=== PATIENT | female | born 1940 | race Caucasian/White ===

== ENCOUNTER → 2016-08-13 | Outpatient (CLI) | payer MEDICARE, BC ==
[2016-08-13 12:48] LABS: ABSOLUTE EOSINOPHILS # (AUTO) 0.3 10^3/uL (0.0-0.6); ABSOLUTE LYMPHOCYTES (AUTO) 1.8 10^3/uL (0.5-4.7); ABSOLUTE MONOCYTES (AUTO) 0.4 10^3/uL (0.1-1.4); ABSOLUTE NEUT (AUTO) 3.5 10^3/uL (1.7-8.2); BASOPHILS % (AUTO) 0.7 % (0-2); EOSINOPHILS % (AUTO) 4.5 % (0-6); HEMATOCRIT 35.6 % (36.0-47.0); HEMOGLOBIN 11.5 g/dL (12.0-15.5); HGB HCT DIFFERENCE -1.1; MEAN CORPUSCULAR HGB CONC 32.2 g/dL (32.0-36.0); MEAN CORPUSCULAR VOLUME 81 fl (80-97); RED CELL DISTRIBUTION WIDTH 14.8 % (11.5-14.0); SEGMENTED NEUTROPHILS % (AUTO) 57.8 % (42-78); WHITE BLOOD COUNT 6.1 10^3/uL (4.0-10.5)
[2016-08-13 13:10] LABS: ALANINE AMINOTRANSFERASE 28 U/L (9-52); ALKALINE PHOSPHATASE 45 U/L (38-126); ANION GAP 9 (5-19); ASPARTATE AMINO TRANSFERASE 16 U/L (14-36); BILIRUBIN,DIRECT 0.3 mg/dL (0.0-0.4); BILIRUBIN,TOTAL 0.7 mg/dL (0.2-1.3); BLOOD UREA NITROGEN 22 mg/dL (7-20); CALCIUM 9.1 mg/dL (8.4-10.2); CARBON DIOXIDE 30 mmol/L (22-30); CHLORIDE 99 mmol/L (98-107); CHOLESTEROL 180.12 mg/dL (0-200); CREATININE RESULT 0.84 mg/dL (0.52-1.25); Direct HDL 48 mg/dL (>40); GLUCOSE 162 mg/dL (75-110); POTASSIUM 4.1 mmol/L (3.6-5.0); TOTAL PROTEIN 6.3 g/dL (6.3-8.2); TRIGLYCERIDES 102 mg/dL (<150)
[2016-08-13 13:22] LABS: DIRECT LDL 110 mg/dL (<100)
[2016-08-14 10:38] LABS: CREATININE URINE 111.8 mg/dL (Not Estab.); MICROALBUMIN URINE 12.6 ug/mL (Not Estab.)
== END ==
LOC: OD 11:28
PROVIDERS: ATTEND Family Medicine
DX: E78.5 Hyperlipidemia, unspecified (principal); Z79.899 Other long term (current) drug therapy; D51.9 Vitamin B12 deficiency anemia, unspecified; E11.65 Type 2 diabetes mellitus with hyperglycemia
CPT/HCPCS: 36415; 80053; 80061; 82043; 82570; 82607; 83036; 84443; 85025

== ENCOUNTER 2016-11-20 11:49 | Inpatient (IN) | payer MEDICARE, BC ==
[2016-11-20] MEDS ORDERED: DILTIAZEM HCL INJ 25 MG/5 ML VIAL IV ONE (12:15)
[2016-11-20] MEDS ORDERED: DILTIAZEM HCL/D5W 125 MG/125 ML RTUINJ IV PRN (12:15)
[2016-11-20 12:39] LABS: ABSOLUTE BASOPHILS # (AUTO) 0.1 10^3/uL (0.0-0.2); ABSOLUTE EOSINOPHILS # (AUTO) 0.2 10^3/uL (0.0-0.6); ABSOLUTE LYMPHOCYTES (AUTO) 2.2 10^3/uL (0.5-4.7); ABSOLUTE NEUT (AUTO) 8.4 10^3/uL (1.7-8.2); BASOPHILS % (AUTO) 0.5 % (0-2); EOSINOPHILS % (AUTO) 1.8 % (0-6); HEMATOCRIT 35.2 % (36.0-47.0); HEMOGLOBIN 11.9 g/dL (12.0-15.5); HGB HCT DIFFERENCE 0.5; LYMPHOCYTES % (AUTO) 18.4 % (13-45); MEAN CORPUSCULAR HEMOGLOBIN 27.6 pg (27.0-33.4); MEAN CORPUSCULAR HGB CONC 33.8 g/dL (32.0-36.0); MEAN CORPUSCULAR VOLUME 82 fl (80-97); MONOCYTES % (AUTO) 8.2 % (3-13); RED BLOOD COUNT 4.32 10^6/uL (3.72-5.28); RED CELL DISTRIBUTION WIDTH 15.3 % (11.5-14.0); SEGMENTED NEUTROPHILS % (AUTO) 71.1 % (42-78); WHITE BLOOD COUNT 11.8 10^3/uL (4.0-10.5)
--- NOTE | 2016-11-20 12:56 | ER Document Report ---
ED General - General Chief Complaint: Palpitations Stated Complaint: ABNORMAL LABS Time Seen by Provider: 11/20/16 12:11 Mode of Arrival: Medic Information source: Patient Notes: 75 yr old female presents with hx of afib with complaints of [place]kan[place] sob over the past few days. Pt notes heart is racing TRAVEL OUTSIDE OF THE [place] IN LAST 30 DAYS: No - HPI Onset: Other - 2-3 days Onset/Duration: Sudden Quality of pain: No pain Severity: Moderate Pain Level: Denies Associated symptoms: Shortness of breath, Weakness Exacerbated by: Walking Relieved by: Denies Similar symptoms previously: Yes Recently seen / treated by doctor: Yes - Related Data Allergies/Adverse Reactions: aspirin [Aspirin] Allergy (Intermediate, Verified 11/20/16 12:00) Hives ciprofloxacin [Ciprofloxacin] Allergy (Intermediate, Verified 11/20/16 12:00) itching Past Medical History - Social History Smoking Status: Never Smoker Cigarette use (# per day): No Chew tobacco use (# tins/day): No Smoking Education Provided: No Family History: None Patient has suicidal ideation: No Patient has homicidal ideation: No - Past Medical History Cardiac Medical History: Denies: Hx Heart Attack, Hx Hypertension Pulmonary Medical History: Denies: Hx Asthma Neurological Medical History: Denies: Hx Cerebrovascular Accident, Hx Seizures Endocrine Medical History: Reports: Hx Diabetes Mellitus Type 2 Renal/ Medical History: Denies: Hx Peritoneal Dialysis GI Medical History: Denies: Hx Hepatitis, Hx Hiatal Hernia, Hx Ulcer Infectious Medical History: Denies: Hx Hepatitis Past Surgical History: Reports: Hx Orthopedic Surgery, Hx Tonsillectomy. Denies : Hx Hysterectomy, Hx Mastectomy, Hx Open Heart Surgery, Hx Pacemaker Review of Systems - Review of Systems Notes: REVIEW OF SYSTEMS: CONSTITUTIONAL : Denies fever, chills, or sweats. Denies recent illness. EENT: Denies eye, ear, throat, or mouth pain or symptoms. Denies nasal or sinus congestion or discharge. Denies throat, tongue, or mouth swelling or difficulty swallowing. CARDIOVASCULAR: heart racing RESPIRATORY: Denies cough, cold, or chest congestion. Denies shortness of breath, difficulty breathing, or wheezing. GASTROINTESTINAL: Denies abdominal pain or distention. Denies nausea, vomiting , or diarrhea. Denies blood in vomitus, stools, or per rectum. Denies black, tarry stools. Denies constipation. GENITOURINARY: Denies difficulty urinating, painful urination, burning, frequency, blood in urine, or discharge. FEMALE GENITOURINARY: Denies vaginal bleeding, heavy or abnormal periods, irregular periods. Denies vaginal discharge or odor. MUSCULOSKELETAL: Denies back or neck pain or stiffness. Denies joint pain or swelling. SKIN: Denies rash, lesions or sores. HEMATOLOGIC : Denies easy bruising or bleeding. LYMPHATIC: Denies swollen, enlarged glands. NEUROLOGICAL: Denies confusion or altered mental status. Denies passing out or loss of consciousness. Denies dizziness or lightheadedness. Denies headache. Denies weakness or paralysis or loss of use of either side. Denies problems with gait or speech. Denies sensory loss, numbness, or tingling. Denies seizures. PSYCHIATRIC: Denies anxiety or stress. Denies depression, suicidal ideation, or homicidal ideation. ALL OTHER SYSTEMS REVIEWED AND NEGATIVE. PHYSICAL EXAMINATION: GENERAL: Well-appearing, well-nourished and in no acute distress. HEAD: Atraumatic, normocephalic. EYES: Pupils equal round and reactive to light, extraocular movements intact, conjunctiva are normal. ENT: Nares patent, oropharynx clear without exudates. Moist mucous membranes. NECK: Normal range of motion, supple without lymphadenopathy LUNGS: Breath sounds clear to auscultation bilaterally and equal. No wheezes rales or rhonchi. HEART: irregular rate and rhythm ABDOMEN: Soft, nontender, nondistended abdomen. No guarding, no rebound. No masses appreciated. Female : deferred Musculoskeletal: Normal range of motion, no pitting or edema. No cyanosis. NEUROLOGICAL: Cranial nerves grossly intact. Normal speech, normal gait. Normal sensory, motor exams PSYCH: Normal mood, normal affect. SKIN: Warm, Dry, normal turgor, no rashes or lesions noted. Dictation was performed using [employer] voice recognition software Physical Exam - Vital signs Vitals: Temp Pulse Resp BP Pulse Ox 98.6 F 146 H 16 109/80 92 11/20/16 11:57 11/20/16 11:57 11/20/16 11:57 11/20/16 11:57 11/20/16 11:57 Course - Re-evaluation Re-evalutation: 11/20/16 12:59 afib rvr noted, pt immediately given cardizem, drip started 11/20/16 13:39 Patient's heart rate has come down to the 130s-140s, I do wish to give metoprolol as well but her blood pressure is not high enough at this time. I will admit to the [facility] inpatient - Vital Signs Vital signs: Temp Pulse Resp BP Pulse Ox 98.6 F 146 H 16 87/66 L 97 11/20/16 11:57 11/20/16 11:57 11/20/16 13:16 11/20/16 13:16 11/20/16 13:16 - Laboratory Result Diagrams: 11/20/16 12:10 11/20/16 12:10 Laboratory results interpreted by me: 11/20/16 11/20/16 11/20/16 12:10 12:10 12:10 WBC 11.8 H Hgb 11.9 L Hct 35.2 L RDW 15.3 H Absolute Neutrophils 8.4 H BUN 21 H Est GFR (Non-Af Amer) 52 L Glucose 229 H Direct Bilirubin 0.5 H NT-Pro-B Natriuret Pep 1530 H - Diagnostic Test Radiology reviewed: Image reviewed, Reports reviewed - EKG Interpretation by Me EKG shows normal: Sinus rhythm, [place], Intervals, QRS Complexes Rate: Tachycardia Rhythm: A.Fib Critical Care Note - Critical Care Note Total time excluding time spent on procedures (mins): 38 Comments: 38 minutes of critical care time spent in direct contact evaluating and reevaluating the patient, treating symptoms, reviewing labs and studies and speaking with family and consultants excluding any procedures Discharge - Discharge Clinical Impression: Atrial fibrillation with RVR Condition: Stable Disposition: ADMITTED INPATIENT Admitting Provider: Hospitalist Unit Admitted: [facility]
[2016-11-20 12:57] LABS: ALANINE AMINOTRANSFERASE 26 U/L (9-52); ALBUMIN 4.6 g/dL (3.5-5.0); ALKALINE PHOSPHATASE 52 U/L (38-126); ANION GAP 16 (5-19); ASPARTATE AMINO TRANSFERASE 19 U/L (14-36); BILIRUBIN,DIRECT 0.5 mg/dL (0.0-0.4); BILIRUBIN,TOTAL 1.3 mg/dL (0.2-1.3); BLOOD UREA NITROGEN 21 mg/dL (7-20); CALCIUM 9.8 mg/dL (8.4-10.2); CARBON DIOXIDE 25 mmol/L (22-30); CHLORIDE 99 mmol/L (98-107); CREATINE KINASE 40 U/L (30-135); CREATININE RESULT 1.03 mg/dL (0.52-1.25); GLUCOSE 229 mg/dL (75-110); MAGNESIUM 1.7 mg/dL (1.6-2.3); SODIUM 139.5 mmol/L (137-145); TOTAL PROTEIN 7.1 g/dL (6.3-8.2)
[2016-11-20] MEDS ORDERED: METOPROLOL TARTRATE PF/INJ 5 MG/5 ML SDV IV ONE ×2 (13:07→19:09)
[2016-11-20] MEDS ORDERED: NORMAL SALINE 1000 ML 1,000 ML IV ONE (13:07)
[2016-11-20 13:08] LABS: CREATINE KINASE MB 0.59 ng/mL (<4.55)
[2016-11-20 13:10] LABS: TROPONIN I < 0.012 ng/mL
--- NOTE | 2016-11-20 13:10 | RADIOLOGY REPORT (SQ) ---
EXAM DESCRIPTION: CHEST PA/LAT COMPLETED DATE/TIME: 11/20/2016 12:48 pm REASON FOR STUDY: afib rvr COMPARISON: CT angio chest 02/18/2014 Chest films 03/02/2014, 07/06/2014, 10/26/2014 EXAM PARAMETERS: NUMBER OF VIEWS: two views TECHNIQUE: Digital Frontal and Lateral radiographic views of the chest acquired. RADIATION DOSE: NA LIMITATIONS: none FINDINGS: LUNGS AND PLEURA: There is trace fluid in the posterior costophrenic sulci bilaterally. Minimal bibasilar atelectasis. No fluffy alveolar infiltrates worrisome for edema or pneumonia. MEDIASTINUM AND HILAR STRUCTURES: No masses or contour abnormalities. HEART AND VASCULAR STRUCTURES: Borderline cardiomegaly BONES: No acute findings. HARDWARE: None in the chest. OTHER: No other significant finding. IMPRESSION: Trace bilateral pleural effusions with very mild bibasilar atelectasis TECHNICAL DOCUMENTATION: JOB ID: [id number] [employer]- All Rights Reserved
[2016-11-20] MEDS ORDERED: DIGOXIN INJ 0.5 MG/2 ML AMPULE IV ONE (14:17)
[2016-11-20] MEDS ORDERED: ONDANSETRON HCL INJ/PF 4 MG/2 ML SDV IV PRN (14:56)
[2016-11-20] MEDS ORDERED: NORMAL SALINE 1000 ML 1,000 ML IV PRN (14:56)
[2016-11-20] MEDS ORDERED: ACETAMINOPHEN 325 MG TABLET PO PRN (14:56)
[2016-11-20] MEDS ORDERED: ONDANSETRON 4 MG TAB.RAPDIS PO PRN (14:56)
[2016-11-20] MEDS ORDERED: GLUCAGON,HUMAN RECOMB 1 MG INJ IM PRN (15:03)
[2016-11-20] MEDS ORDERED: DEXTROSE 50%-WATER 25 GM/50 ML DISP.SYRIN IV PRN ×2 (15:03)
[2016-11-20] MEDS ORDERED: DEXTROSE 40% GEL 15 GM TUBE PO PRN ×2 (15:03)
--- NOTE | 2016-11-20 15:12 | PDOC H&P ---
History of Present Illness Admission Date/PCP: CHAD ALCALA MD Patient complains of: Shortness of breath History of Present Illness: BREANA BISWAS is a 75 year old female who has a history of atrial fibrillation in the past but has not had symptoms for quite some time who presents with a four-day history of intermittent shortness of breath. Patient reports that on Wednesday she was cutting her grass by using a riding lawnmower and became very dyspneic. This lasted about 40 minutes and resolved spontaneously. Patient then did well until Wednesday when she woke up Wednesday morning she had an episode of shortness of breath lasted approximately 15 or 20 minutes. She had shortness of breath today and presented to the emergency room. She was found to have atrial fibrillation with a rapid ventricular rate. She denies having any chest pain associated with this. She denies any orthopnea or PND. Denies any lower extremity edema. Patient denies any fevers or chills. She does have a history of diastolic congestive heart failure but denies any orthopnea or PND. She does report she has gained about 3 pounds in the last week. The patient has not been checking her blood sugars. She also has chronic lymphocytic leukemia but has not received treatment for that recently. Past Medical History Cardiac Medical History: Reports: Congestive Heart Failure - Diastolic dysfunction Denies: Myocardial Infarction, Hypertension Pulmonary Medical History: Reports: Chronic Obstructive Pulmonary Disease (COPD) Denies: Asthma Neurological Medical History: Denies: Seizures Endocrine Medical History: Reports: Diabetes Mellitus Type 2 Malignancy Medical History: Reports: Leukemia GI Medical History: Denies: Hepatitis, Hiatal Hernia Psychiatric Medical History: Denies: Depression Hematology: Denies: Anemia, Sickle Cell Disease Past Surgical History Past Surgical History: Reports: Orthopedic Surgery, Tonsillectomy Denies: Amputation, Hysterectomy, Mastectomy, Pacemaker Social History Information Source: Parent Lives with: Alone Smoking Status: Former Smoker Frequency of Alcohol Use: None Hx Recreational Drug Use: No Drugs: None Hx Prescription Drug Abuse: No - Advance Directive Resuscitation Status: Full Code Surrogate healthcare decision maker:: Her cousin Gali Page Family History Family History: Mother at age 89 from pancreatic cancer. Father at age 23 in the invasion. Parental Family History Reviewed: Yes Children Family History Reviewed: No Sibling(s) Family History Reviewed.: No Medication/Allergy Allergies/Adverse Reactions: aspirin [Aspirin] Allergy (Intermediate, Verified 11/20/16 12:00) Hives ciprofloxacin [Ciprofloxacin] Allergy (Intermediate, Verified 11/20/16 12:00) itching Review of Systems Constitutional: PRESENT: weight gain. ABSENT: chills, fever(s), headache(s), weight loss Eyes: ABSENT: visual disturbances Ears: ABSENT: hearing changes Cardiovascular: PRESENT: dyspnea on exertion. ABSENT: chest pain, edema, orthropnea, palpitations Respiratory: PRESENT: dyspnea. ABSENT: cough, hemoptysis, sputum Gastrointestinal: ABSENT: abdominal pain, constipation, diarrhea, hematemesis, hematochezia, nausea, vomiting Genitourinary: ABSENT: dysuria, hematuria Integumentary: ABSENT: rash, wounds Neurological: ABSENT: abnormal gait, abnormal speech, confusion, dizziness, focal weakness, syncope Psychiatric: ABSENT: anxiety, depression Hematologic/Lymphatic: ABSENT: easy bleeding, easy bruising Physical Exam Vital Signs: Temp Pulse Resp BP Pulse Ox 98.6 F 146 H 20 103/79 92 11/20/16 11:57 11/20/16 11:57 11/20/16 14:27 11/20/16 14:27 11/20/16 14:27 Intake & Output 11/19/16 11/20/16 11/21/16 06:59 06:59 06:59 Weight 77.1 kg General appearance: PRESENT: no acute distress, well-developed, well-nourished Head exam: PRESENT: atraumatic, normocephalic Eye exam: PRESENT: conjunctiva pink, EOMI, PERRLA. ABSENT: scleral icterus Ear exam: PRESENT: normal external ear exam Mouth exam: PRESENT: moist, tongue midline Neck exam: ABSENT: JVD Respiratory exam: PRESENT: clear to auscultation senait. ABSENT: rales, rhonchi, wheezes Cardiovascular exam: PRESENT: RRR. ABSENT: diastolic murmur, rubs, systolic murmur Pulses: PRESENT: normal dorsalis pedis pul Vascular exam: PRESENT: normal capillary refill GI/Abdominal exam: PRESENT: normal bowel sounds, soft. ABSENT: distended, guarding, mass, organolmegaly, rebound, tenderness Rectal exam: PRESENT: deferred Extremities exam: ABSENT: calf tenderness, clubbing, pedal edema Neurological exam: PRESENT: alert, awake, oriented to person, oriented to place , oriented to time, oriented to situation, CN II-XII grossly intact. ABSENT: motor sensory deficit Psychiatric exam: PRESENT: appropriate affect Skin exam: PRESENT: dry, intact, warm. ABSENT: cyanosis, rash Results Laboratory Results: 11/20/16 12:10 11/20/16 12:10 11/20/16 11/20/16 11/20/16 12:10 12:10 12:10 WBC 11.8 H RBC 4.32 Hgb 11.9 L Hct 35.2 L MCV 82 MCH 27.6 MCHC 33.8 RDW 15.3 H Plt Count 193 Seg Neutrophils % 71.1 Lymphocytes % 18.4 Monocytes % 8.2 Eosinophils % 1.8 Basophils % 0.5 Absolute Neutrophils 8.4 H Absolute Lymphocytes 2.2 Absolute Monocytes 1.0 Absolute Eosinophils 0.2 Absolute Basophils 0.1 Sodium 139.5 Potassium 4.0 Chloride 99 Carbon Dioxide 25 Anion Gap 16 BUN 21 H Creatinine 1.03 Est GFR ( Amer) > 60 Est GFR (Non-Af Amer) 52 L Glucose 229 H Calcium 9.8 Magnesium 1.7 Total Bilirubin 1.3 AST 19 ALT 26 Alkaline Phosphatase 52 Total Protein 7.1 Albumin 4.6 TSH 0.11 L 11/20/16 11/20/16 12:10 12:10 Creatine Kinase 40 CK-MB (CK-2) 0.59 Troponin I < 0.012 NT-Pro-B Natriuret Pep 1530 H Impressions: Chest X-Ray 11/20/16 12:15 IMPRESSION: Trace bilateral pleural effusions with very mild bibasilar atelectasis Assessment & Plan - Diagnosis (1) Acute respiratory failure Is this a current diagnosis for this admission?: Yes Plan: Secondary to atrial fibrillation with a rapid ventricular rate. Will give oxygen as needed. (2) Atrial fibrillation with RVR Is this a current diagnosis for this admission?: Yes Plan: Patient has history of atrial fibrillation. Will continue the Cardizem drip as started in the emergency room. Will also give digoxin. Will check serial cardiac enzymes to make certain that she has not had an acute cardiac event. (3) Acute congestive heart failure Is this a current diagnosis for this admission?: Yes Plan: Has a history of diastolic congestive heart failure. She appears to be euvolemic currently. (4) Diabetes mellitus Is this a current diagnosis for this admission?: Yes Plan: We will cover with sliding scale insulin. (5) Chronic lymphocytic leukemia Is this a current diagnosis for this admission?: Yes (6) COPD (chronic obstructive pulmonary disease) Is this a current diagnosis for this admission?: Yes Plan: Continue with nebulizers as needed (7) Peripheral neuropathy Is this a current diagnosis for this admission?: Yes (8) Hyperthyroidism Is this a current diagnosis for this admission?: Yes Plan: Patient has no previous history of hyperthyroidism however the TSH is low. Will check a T4 to see if this is confirmed or not. - Time Time Spent: 50 to 70 Minutes - Inpatient Certification Medical Necessity: Need Close Monitoring Due to Risk of Patient Decompensation
[2016-11-20] MEDS ORDERED: ENOXAPARIN SODIUM INJ 40 MG/0.4 ML DISP.SYRIN SUBCUT ONE (16:00)
[2016-11-20 16:08] LABS: CREATINE KINASE MB 0.94 ng/mL (<4.55)
[2016-11-20 16:09] LABS: TROPONIN I < 0.012 ng/mL
[2016-11-20] MEDS: IPRATROPIUM/ALBUTEROL 0.5-2.5 MG/3 ML AMPUL NEB PRN (18:32)
[2016-11-20] MEDS: DILTIAZEM HCL/D5W 125 MG/125 ML RTUINJ IV PRN (19:45)
[2016-11-20] MEDS: INSULIN LISPRO 100 UNIT/ML 3 ML VIAL SUBCUT PRN (21:33)
[2016-11-20] MEDS: FAMOTIDINE 20 MG TABLET PO SCH (21:33)
[2016-11-20 21:49] LABS: CREATINE KINASE MB 1.95 ng/mL (<4.55)
[2016-11-20 22:00] LABS: TROPONIN I < 0.012 ng/mL
--- NOTE | 2016-11-21 00:17 | EKG REPORT ---
SEVERITY:- ABNORMAL ECG - ATRIAL FIBRILLATION WITH RAPID V-RATE LOW VOLTAGE IN FRONTAL LEADS ST DEPRESSION, PROBABLY RATE RELATED : Confirmed by: Faustina Mehta 21-Nov-2016 00:16:51
[2016-11-21] MEDS ORDERED: TRAZODONE HCL 50 MG TABLET PO SCH ×2 (01:00→22:00)
[2016-11-21] MEDS: IPRATROPIUM/ALBUTEROL 0.5-2.5 MG/3 ML AMPUL NEB PRN ×3 (01:00→19:45)
[2016-11-21] MEDS ORDERED: TRAZODONE HCL 50 MG TABLET PO ONE (01:00)
[2016-11-21] MEDS: DILTIAZEM HCL/D5W 125 MG/125 ML RTUINJ IV PRN ×3 (02:03→17:11)
[2016-11-21 03:46] LABS: ABSOLUTE EOSINOPHILS # (AUTO) 0.1 10^3/uL (0.0-0.6); ABSOLUTE LYMPHOCYTES (AUTO) 1.5 10^3/uL (0.5-4.7); ABSOLUTE NEUT (AUTO) 9.9 10^3/uL (1.7-8.2); BASOPHILS % (AUTO) 0.4 % (0-2); EOSINOPHILS % (AUTO) 0.6 % (0-6); HEMATOCRIT 31.3 % (36.0-47.0); HEMOGLOBIN 10.6 g/dL (12.0-15.5); HGB HCT DIFFERENCE 0.5; LYMPHOCYTES % (AUTO) 11.8 % (13-45); MEAN CORPUSCULAR HEMOGLOBIN 27.7 pg (27.0-33.4); MEAN CORPUSCULAR HGB CONC 33.9 g/dL (32.0-36.0); MEAN CORPUSCULAR VOLUME 82 fl (80-97); MONOCYTES % (AUTO) 7.9 % (3-13); RED BLOOD COUNT 3.83 10^6/uL (3.72-5.28); RED CELL DISTRIBUTION WIDTH 15.4 % (11.5-14.0); SEGMENTED NEUTROPHILS % (AUTO) 79.3 % (42-78); WHITE BLOOD COUNT 12.5 10^3/uL (4.0-10.5)
[2016-11-21 04:04] LABS: ANION GAP 10 (5-19); BLOOD UREA NITROGEN 19 mg/dL (7-20); CALCIUM 8.8 mg/dL (8.4-10.2); CARBON DIOXIDE 25 mmol/L (22-30); CHLORIDE 105 mmol/L (98-107); CREATININE RESULT 0.78 mg/dL (0.52-1.25); GLUCOSE 268 mg/dL (75-110); MAGNESIUM 1.8 mg/dL (1.6-2.3); POTASSIUM 4.3 mmol/L (3.6-5.0); SODIUM 140.4 mmol/L (137-145)
[2016-11-21 04:14] LABS: CREATINE KINASE MB 2.67 ng/mL (<4.55); TROPONIN I < 0.012 ng/mL
[2016-11-21] MEDS: GABAPENTIN 300 MG CAPSULE PO SCH ×3 (05:46→16:45)
[2016-11-21] MEDS: INSULIN LISPRO 100 UNIT/ML 3 ML VIAL SUBCUT PRN ×4 (08:28→23:32)
[2016-11-21] MEDS: METOPROLOL TARTRATE PF/INJ 5 MG/5 ML SDV IV PRN ×2 (08:52→16:44)
[2016-11-21] MEDS ORDERED: DIGOXIN INJ 0.5 MG/2 ML AMPULE ONE (09:01)
[2016-11-21] MEDS ORDERED: NORMAL SALINE 250 ML IV ONE (10:00)
[2016-11-21] MEDS ORDERED: DIGOXIN 0.125 MG TABLET PO SCH (10:00)
[2016-11-21] MEDS ORDERED: ENOXAPARIN SODIUM INJ 40 MG/0.4 ML DISP.SYRIN SUBCUT SCH (10:00)
[2016-11-21] MEDS: ENOXAPARIN SODIUM INJ 80 MG/0.8 ML DISP.SYRIN SUBCUT SCH ×2 (10:10→21:43)
[2016-11-21] MEDS: FAMOTIDINE 20 MG TABLET PO SCH ×2 (10:11→21:43)
--- NOTE | 2016-11-21 11:03 | PDOC PROGRESS REPORT ---
Subjective Progress Note for:: 11/21/16 Subjective:: Patient complains of palpitations. She still in atrial fibrillation with a rapid ventricular rate. Physical Exam Vital Signs: Temp Pulse Resp BP Pulse Ox 98.4 F 141 H 20 99/77 L 96 11/21/16 07:11 11/21/16 08:08 11/21/16 08:08 11/21/16 08:01 11/21/16 08:08 Intake & Output 11/20/16 11/21/16 11/22/16 06:59 06:59 06:59 Intake Total 2636 Balance 2636 General appearance: PRESENT: no acute distress Eye exam: PRESENT: conjunctiva pink. ABSENT: scleral icterus Mouth exam: PRESENT: moist, tongue midline Neck exam: ABSENT: JVD Respiratory exam: PRESENT: clear to auscultation senait. ABSENT: rales, rhonchi, wheezes Cardiovascular exam: PRESENT: irregular rhythm, tachycardia. ABSENT: diastolic murmur, rubs, systolic murmur GI/Abdominal exam: PRESENT: normal bowel sounds, soft. ABSENT: distended, guarding, mass, organolmegaly, rebound, tenderness Rectal exam: PRESENT: deferred Extremities exam: ABSENT: calf tenderness, clubbing, pedal edema Neurological exam: PRESENT: alert, awake, oriented to person, oriented to place , oriented to time, oriented to situation, CN II-XII grossly intact. ABSENT: motor sensory deficit Psychiatric exam: PRESENT: appropriate affect Skin exam: PRESENT: dry, intact, warm. ABSENT: cyanosis, rash Results Laboratory Results: 11/21/16 03:36 11/21/16 03:36 11/21/16 11/21/16 03:36 03:36 WBC 12.5 H RBC 3.83 Hgb 10.6 L Hct 31.3 L MCV 82 MCH 27.7 MCHC 33.9 RDW 15.4 H Plt Count 193 Seg Neutrophils % 79.3 H Lymphocytes % 11.8 L Monocytes % 7.9 Eosinophils % 0.6 Basophils % 0.4 Absolute Neutrophils 9.9 H Absolute Lymphocytes 1.5 Absolute Monocytes 1.0 Absolute Eosinophils 0.1 Absolute Basophils 0.0 Sodium 140.4 Potassium 4.3 Chloride 105 Carbon Dioxide 25 Anion Gap 10 BUN 19 Creatinine 0.78 Est GFR ( Amer) > 60 Est GFR (Non-Af Amer) > 60 Glucose 268 H Calcium 8.8 Magnesium 1.8 11/20/16 11/20/16 11/20/16 15:28 15:28 21:05 Creatine Kinase 36 40 CK-MB (CK-2) 0.94 Troponin I < 0.012 11/20/16 11/21/16 11/21/16 21:05 03:36 03:36 Creatine Kinase 46 CK-MB (CK-2) 1.95 2.67 Troponin I < 0.012 < 0.012 Impressions: Chest X-Ray 11/20/16 12:15 IMPRESSION: Trace bilateral pleural effusions with very mild bibasilar atelectasis Assessment & Plan - Diagnosis (1) Acute respiratory failure Is this a current diagnosis for this admission?: Yes Plan: Secondary to atrial fibrillation with a rapid ventricular rate. Will give oxygen as needed. (2) Atrial fibrillation with RVR Is this a current diagnosis for this admission?: Yes Plan: Patient has history of atrial fibrillation. Will continue the Cardizem drip. Will increase the digoxin. Will consult cardiology if she still having rapid ventricular rate. Also given a dose of IV Lopressor this morning. (3) Acute congestive heart failure Is this a current diagnosis for this admission?: Yes Plan: Has a history of diastolic congestive heart failure. She appears to be euvolemic currently. (4) Diabetes mellitus Is this a current diagnosis for this admission?: Yes Plan: We will cover with sliding scale insulin. (5) Chronic lymphocytic leukemia Is this a current diagnosis for this admission?: Yes (6) COPD (chronic obstructive pulmonary disease) Is this a current diagnosis for this admission?: Yes Plan: Continue with nebulizers as needed (7) Peripheral neuropathy Is this a current diagnosis for this admission?: Yes (8) Hyperthyroidism Is this a current diagnosis for this admission?: Yes Plan: Patient has no previous history of hyperthyroidism. TSH is low however the T4 is in the normal range. I doubt that this is the cause for her atrial fibrillation. - Time Time Spent with patient: 25-34 minutes
[2016-11-21] MEDS ORDERED: METOPROLOL TARTRATE PF/INJ 5 MG/5 ML SDV IV ONE ×3 (20:45→21:45)
[2016-11-21] MEDS ORDERED: LORAZEPAM INJ 2 MG/1 ML VIAL ONE (21:07)
[2016-11-21] MEDS ORDERED: LORAZEPAM INJ 2 MG/1 ML VIAL IV ONE (21:15)
[2016-11-21] MEDS: TRAMADOL HCL 50 MG TABLET PO SCH (21:44)
[2016-11-21] MEDS ORDERED: FLUTICASONE NASAL SPRAY 50 MCG/SPRY 120 SPRAY/16 GM NASL ONE (23:00)
[2016-11-21] MEDS ORDERED: CHLORPHENIRAMINE MALEATE 4 MG TABLET PO SCH (23:00)
[2016-11-21] MEDS ORDERED: FLUTICASONE NASAL SPRAY 50 MCG/SPRY 120 SPRAY/16 GM ONE (23:18)
[2016-11-21] MEDS ORDERED: CHLORPHENIRAMINE MALEATE 4 MG TABLET ONE (23:40)
[2016-11-22] MEDS: DILTIAZEM HCL/D5W 125 MG/125 ML RTUINJ IV PRN ×2 (00:01→08:15)
[2016-11-22] MEDS ORDERED: METOPROLOL TARTRATE PF/INJ 5 MG/5 ML SDV IV ONE ×2 (01:25→01:30)
[2016-11-22] MEDS: GABAPENTIN 300 MG CAPSULE PO SCH ×3 (01:26→12:55)
[2016-11-22] MEDS ORDERED: DIGOXIN INJ 0.5 MG/2 ML AMPULE ONE (02:02)
[2016-11-22] MEDS ORDERED: DIGOXIN INJ 0.5 MG/2 ML AMPULE IV ONE (02:15)
[2016-11-22 05:46] LABS: ABSOLUTE BASOPHILS # (AUTO) 0.1 10^3/uL (0.0-0.2); ABSOLUTE EOSINOPHILS # (AUTO) 0.2 10^3/uL (0.0-0.6); ABSOLUTE LYMPHOCYTES (AUTO) 2.3 10^3/uL (0.5-4.7); ABSOLUTE NEUT (AUTO) 10.6 10^3/uL (1.7-8.2); BASOPHILS % (AUTO) 0.4 % (0-2); EOSINOPHILS % (AUTO) 1.5 % (0-6); HEMOGLOBIN 10.3 g/dL (12.0-15.5); HGB HCT DIFFERENCE 0.9; LYMPHOCYTES % (AUTO) 16.3 % (13-45); MEAN CORPUSCULAR HEMOGLOBIN 27.4 pg (27.0-33.4); MEAN CORPUSCULAR HGB CONC 34.2 g/dL (32.0-36.0); MEAN CORPUSCULAR VOLUME 80 fl (80-97); MONOCYTES % (AUTO) 7.1 % (3-13); RED BLOOD COUNT 3.74 10^6/uL (3.72-5.28); RED CELL DISTRIBUTION WIDTH 15.6 % (11.5-14.0); SEGMENTED NEUTROPHILS % (AUTO) 74.7 % (42-78); WHITE BLOOD COUNT 14.2 10^3/uL (4.0-10.5)
[2016-11-22 05:54] LABS: ANION GAP 10 (5-19); BLOOD UREA NITROGEN 16 mg/dL (7-20); CARBON DIOXIDE 24 mmol/L (22-30); CHLORIDE 105 mmol/L (98-107); DIGOXIN 1.14 ng/mL (0.8-2.0); GLUCOSE 210 mg/dL (75-110); POTASSIUM 4.2 mmol/L (3.6-5.0); SODIUM 138.5 mmol/L (137-145)
[2016-11-22] MEDS: TRAMADOL HCL 50 MG TABLET PO SCH ×2 (06:12→13:45)
[2016-11-22] MEDS ORDERED: METOPROLOL TARTRATE 50 MG TABLET PO SCH (06:30)
[2016-11-22] MEDS: IPRATROPIUM BROMIDE 0.02% NEB 0.5 MG/2.5 ML AMPUL NEB SCH ×2 (08:08→14:10)
[2016-11-22] MEDS: INSULIN LISPRO 100 UNIT/ML 3 ML VIAL SUBCUT PRN ×2 (08:13→12:55)
[2016-11-22] MEDS: METOPROLOL TARTRATE PF/INJ 5 MG/5 ML SDV IV PRN (09:06)
[2016-11-22] MEDS: ENOXAPARIN SODIUM INJ 80 MG/0.8 ML DISP.SYRIN SUBCUT SCH (09:07)
[2016-11-22] MEDS: FAMOTIDINE 20 MG TABLET PO SCH (09:07)
--- NOTE | 2016-11-22 09:50 | PDOC TRANSFER SUMMARY ---
General Admission Date/PCP: 11/20/16 14:57 CHAD ALCALA MD Transfer Date: 11/22/16 Accepting Facility: [facility] Accepting Physician: dr bryon Duckworth Resuscitation Status: Full Code - Transfer Diagnosis (1) Acute respiratory failure Is this a current diagnosis for this admission?: Yes Diagnosis Summary: Secondary to atrial fibrillation with rapid ventricular rate. (2) Atrial fibrillation with RVR Is this a current diagnosis for this admission?: Yes Diagnosis Summary: Patient is currently on IV diltiazem at 15 mg/h, Lopressor 50 mg every 12 as well as digoxin 0.25 mg daily. She continues to have widely fluctuating pulse ranging from 50-170 consistent with sick sinus syndrome. (3) Acute congestive heart failure Is this a current diagnosis for this admission?: Yes Diagnosis Summary: The patient has a history of diastolic dysfunction. She did have some mild acute diastolic congestive heart failure she presented secondary to rapid ventricular rate. This has improved with improvement in her heart rate. She has not required Lasix while hospitalized. (4) Diabetes mellitus Is this a current diagnosis for this admission?: Yes Diagnosis Summary: Patient has been getting sliding scale insulin. (5) Chronic lymphocytic leukemia Is this a current diagnosis for this admission?: Yes (6) COPD (chronic obstructive pulmonary disease) Is this a current diagnosis for this admission?: Yes (7) Peripheral neuropathy Is this a current diagnosis for this admission?: Yes (8) Hyperthyroidism Is this a current diagnosis for this admission?: Yes Diagnosis Summary: The patient had a suppressed TSH however had a normal T4. The patient is not getting any treatment for this at this time. Given the normal T4 it is unlikely that this is contributing much to the atrial fibrillation. - Transfer Medications Home Medications: Furosemide [Lasix 40 mg Tablet] 40 mg PO DAILY 11/20/16 Gabapentin 300 mg PO Q6 11/20/16 Insulin Lispro [Humalog Kwikpen U-100] 0 units SQ .SLIDING SCALE QHSP PRN Insulin NPH Human Isophane [Humulin N Kwikpen] 0 units SQ . SLIDING SCALE Metformin HCl [Glucophage] 1,000 mg PO Q12 11/20/16 Tramadol HCl [Ultram 50 mg Tablet] 50 mg PO Q8 11/20/16 Trazodone HCl [Desyrel 50 mg Tablet] 25 mg PO HSP PRN 11/20/16 Transfer Medications: Current Medications Acetaminophen (Tylenol 325 Mg Tablet) 650 mg PO Q4HP PRN PRN Reason: FOR PAIN OR TEMP Stop: 12/20/16 14:55 Chlorpheniramine Maleate (Chlor-Trimeton 4 Mg Tablet) 4 mg PO NOW MONIKA Stop: 12/21/16 22:59 Dextrose (Dextrose Inj 50% Syringe (25 Gm/50 Ml)) 12.5 gm IV PRN PRN; Protocol PRN Reason: FOR BG 50-69 IN ALERT PATIENT Stop: 12/20/16 15:02 Dextrose (Dextrose Inj 50% Syringe (25 Gm/50 Ml)) 25 gm IV PRN PRN PRN Reason: Protocol Stop: 12/20/16 15:02 Digoxin (Lanoxin 0.25 Mg Tablet) 0.25 mg PO DAILY MONIKA Stop: 12/22/16 09:59 Last Admin: 11/22/16 09:07 Dose: 0.25 mg Enoxaparin Sodium (Lovenox Inj 80 Mg/0.8 Ml Disp.Syrin) 75 mg SUBCUT Q12 MONIKA Stop: 12/21/16 09:59 Last Admin: 11/22/16 09:07 Dose: 75 mg Famotidine (Pepcid 20 Mg Tablet) 20 mg PO Q12 MONIKA Stop: 12/20/16 21:59 Last Admin: 11/22/16 09:07 Dose: 20 mg Gabapentin (Neurontin 300 Mg Capsule) 300 mg PO Q6 MONIKA Stop: 12/21/16 00:14 Last Admin: 11/22/16 06:12 Dose: 300 mg Glucagon (Glucagen Inj 1 Mg Vial) 1 mg IM PRN PRN; Protocol PRN Reason: Evaluate for BG < 70 Stop: 12/20/16 15:02 Glucose (Glutose 40% Gel 15 Gm Tube) 15 gm PO PRN PRN; Protocol PRN Reason: FOR BG 50-69 IN ALERT PATIENT Stop: 12/20/16 15:02 Glucose (Glutose 40% Gel 15 Gm Tube) 30 gm PO PRN PRN; Protocol PRN Reason: FOR BG < 50 IN ALERT PATIENT Stop: 12/20/16 15:02 Diltiazem HCl (Cardizem Rtu Inj 125 Mg-D5w 125 Ml Premix) 125 mg in 125 mls @ 0 mls/hr IV CONTINUOUS PRN; Protocol; Titrate PRN Reason: THIS MED IS NOT "PRN" Stop: 12/20/16 15:01 Last Admin: 11/22/16 08:15 Dose: 125 ml Insulin Human Lispro (Humalog Insulin 100 Unit/1 Ml 3 Ml Vial) 0 - 12 unit SUBCUT ACHSP PRN PRN Reason: Protocol Stop: 12/20/16 15:02 Last Admin: 11/22/16 08:13 Dose: 6 unit Ipratropium [place] (Atrovent 0.02% Neb 0.5 Mg/2.5 Ml Ampul) 0.25 mg NEB RTQ6 MONIKA Stop: 12/22/16 02:29 Last Admin: 11/22/16 08:08 Dose: 0.25 mg Metoprolol Tartrate (Lopressor Inj/Pf 5 Mg/5 Ml Sdv) 5 mg IV Q6HP PRN PRN Reason: give for pulse >120 Stop: 12/20/16 19:01 Last Admin: 11/22/16 09:06 Dose: 5 mg Metoprolol Tartrate (Lopressor 50 Mg Tablet) 50 mg PO Q12 [facility] Stop: 12/22/16 06:29 Ondansetron HCl (Zofran Inj/Pf 4 Mg/2 Ml Sdv) 4 mg IV Q6HP PRN PRN Reason: FOR NAUSEA/VOMITING Stop: 12/20/16 14:55 Ondansetron HCl (Zofran Odt 4 Mg Tablet) 4 mg PO Q6HP PRN PRN Reason: FOR NAUSEA/VOMITING Stop: 12/20/16 14:55 Tramadol HCl (Ultram 50 Mg Tablet) 50 mg PO Q8 [facility] Stop: 11/28/16 21:59 Last Admin: 11/22/16 06:12 Dose: 50 mg Trazodone HCl (Desyrel 50 Mg Tablet) 25 mg PO QHS [facility] Stop: 12/21/16 21:59 Last Admin: 11/21/16 21:43 Dose: 25 mg - Allergies Allergies/Adverse Reactions: aspirin [Aspirin] Allergy (Intermediate, Verified 11/20/16 12:00) Hives ciprofloxacin [Ciprofloxacin] Allergy (Intermediate, Verified 11/20/16 12:00) itching - Diet/Activity Discharge Diet: Cardiac, Diabetic Hospital Course Hospital Course: 75-year-old female who has a history of diabetes and a distant history of atrial fibrillation who presented with intermittent shortness of breath for 4 or 5 days prior to presentation. The patient prior to presentation had several episodes that lasted only for short period of time where she became short of breath with minimal exertion. Patient had continued shortness of breath on the day of admission and when she presented was found to have atrial fibrillation with heart rate in the 170s. The patient also was found to have some mild acute diastolic congestive heart failure. The patient was started on IV diltiazem with decrease in her heart rate but she has continued to have episodic elevation of her heart rate. Rates have ranged from 50-170 over the last 24 hours. She currently is on diltiazem 15 mg an hour, Lopressor 50 mg every 12 as well as digoxin 0.25 mg daily. Given the widely fluctuating pulse rate in spite of the above medications is presumed that she has sick sinus syndrome. Because of this I think that she may need a transesophageal echo with DC cardioversion versus cardiac ablation. We cannot provide either those services at [facility] and I have discussed the case with Dr. Bryon Duckworth at [facility] who graciously agrees to accept the patient in transfer. The patient is currently euvolemic. She has not required any Lasix while hospitalized. The patient also has diabetes and is currently on a sliding scale insulin sugars have been running slightly on the high side. Patient also has a history of COPD, chronic leukocytic leukemia and COPD all of which have been stable during this hospitalization. The patient last evening did have an episode of confusion requiring Ativan. The patient however had a paradoxical reaction to Ativan and became more agitated. The patient this morning however is alert and oriented 3. Physical Exam Vital Signs: Temp Pulse Resp BP Pulse Ox 98.8 F 128 H 28 H 105/60 95 11/22/16 07:22 11/22/16 09:00 11/22/16 08:09 11/22/16 09:01 11/22/16 09:01 Intake & Output 11/21/16 11/22/16 11/23/16 06:59 06:59 06:59 Intake Total 2636 4661 Balance 2636 4661 Weight 86.2 kg General appearance: PRESENT: no acute distress Eye exam: PRESENT: conjunctiva pink. ABSENT: scleral icterus Mouth exam: PRESENT: moist, tongue midline Neck exam: ABSENT: JVD Respiratory exam: PRESENT: clear to auscultation senait. ABSENT: rales, rhonchi, wheezes Cardiovascular exam: PRESENT: irregular rhythm, tachycardia. ABSENT: diastolic murmur, rubs, systolic murmur GI/Abdominal exam: PRESENT: normal bowel sounds, soft. ABSENT: distended, guarding, mass, organolmegaly, rebound, tenderness Extremities exam: ABSENT: calf tenderness, clubbing, pedal edema Neurological exam: PRESENT: alert, awake, oriented to person, oriented to place , oriented to time, oriented to situation, CN II-XII grossly intact. ABSENT: motor sensory deficit Psychiatric exam: PRESENT: appropriate affect Skin exam: PRESENT: dry, intact, warm. ABSENT: cyanosis, rash Results Laboratory Results: 11/22/16 04:42 11/22/16 04:42 11/22/16 11/22/16 04:42 04:42 WBC 14.2 H RBC 3.74 Hgb 10.3 L Hct 30.0 L MCV 80 MCH 27.4 MCHC 34.2 RDW 15.6 H Plt Count 215 Seg Neutrophils % 74.7 Lymphocytes % 16.3 Monocytes % 7.1 Eosinophils % 1.5 Basophils % 0.4 Absolute Neutrophils 10.6 H Absolute Lymphocytes 2.3 Absolute Monocytes 1.0 Absolute Eosinophils 0.2 Absolute Basophils 0.1 Sodium 138.5 Potassium 4.2 Chloride 105 Carbon Dioxide 24 Anion Gap 10 BUN 16 Creatinine 0.70 Est GFR ( Amer) > 60 Est GFR (Non-Af Amer) > 60 Glucose 210 H Calcium 9.0 11/20/16 11/20/16 11/20/16 15:28 15:28 21:05 Creatine Kinase 36 40 CK-MB (CK-2) 0.94 Troponin I < 0.012 11/20/16 11/21/16 11/21/16 21:05 03:36 03:36 Creatine Kinase 46 CK-MB (CK-2) 1.95 2.67 Troponin I < 0.012 < 0.012 Impressions: Chest X-Ray 11/20/16 12:15 IMPRESSION: Trace bilateral pleural effusions with very mild bibasilar atelectasis Plan Discharge Plan: Patient is to be transferred to [facility]. Dr. Bryon Duckworth is the accepting physician. Time Spent: Greater than 30 Minutes
[2016-11-22] MEDS ORDERED: DIGOXIN 0.25 MG TABLET PO SCH (10:00)
[2016-11-22] MEDS ORDERED: DIGOXIN 0.125 MG TABLET PO SCH (10:00)
--- NOTE | 2016-11-22 13:05 | EKG REPORT ---
SEVERITY:- ABNORMAL ECG - ATRIAL FIBRILLATION LOW VOLTAGE THROUGHOUT BORDERLINE R WAVE PROGRESSION, ANTERIOR LEADS : Confirmed by: Faustina Mehta 22-Nov-2016 13:04:18
[2016-11-22 13:19] VITALS: BP 117/62
--- NOTE | 2016-11-22 21:32 | PROGRESS NOTE E ---
Progress Note NAME: BREANA BISWAS : 1940 AGE: 75Y DATE: 11/22/2016 ROOM: 325 SUBJECTIVE: Note the patient at present is drowsy but awake and seems to be oriented x3. Her rate is much better controlled now but she has a rate of 81 beats per minute but she keeps going into the 150s and sometimes it comes down into the 50s. The patient denies any chest pain or discomfort. There is no palpitations. There is no bleeding on the current Lovenox therapy. She denies any leg edema. There are no TIA or CVA symptoms. There is no dizziness, syncope or near syncope. *------* confused but at present patient is just sleepy and states that she did not have a good night's sleep but seems to be oriented x3 at present. OBJECTIVE: On examination, the patient is mildly obese in no acute distress. VITAL SIGNS: Temperature is 99.2 degrees Fahrenheit. Pulse is 81 beats per minute. Blood pressure is 119/61. Respirations are 22 per minute. O2 sats are 93% on 2 liters nasal cannula. HEAD: Atraumatic, normocephalic. EYES: Pupils are equal, round, regular and reactive to light and accommodation. Extraocular movements are normal. There is no conjunctival pallor. There is no scleral icterus. ENT: Negative. NECK: Supple. There is no JVD. Carotids are equal. There is no bruit. There is no goiter. There is no lymphadenopathy. Trachea is center. LUNGS: Show mildly diminished air entry and prolonged expiration and hyperresonance on percussion. There are no rhonchi, rales, or wheezes. HEART: S1 and S2 are heard. S1 is of variable intensity. There is no S3 gallop. There is no S4 gallop. There is a systolic murmur at the left sternal border and the apex. There is no rub. ABDOMEN: Soft, nontender. There is no hepatosplenomegaly. Bowel sounds are well heard. EXTREMITIES: Femorals are mildly diminished. Leg pulses are mildly diminished. There are no femoral bruits. There is no DVT or cellulitis. There is no pedal edema. There is no cyanosis or clubbing. CENTRAL NERVOUS SYSTEM: The patient is slightly sleepy but otherwise oriented x3 with no focal deficits. PSYCHIATRIC: The patient's judgement and insight are intact. Her affect is normal. LABORATORY: The patient's EKG shows atrial fibrillation earlier this morning with a heart rate of *------* beats per minute. Borderline *------* anterior leads. Low voltage throughout. The patient's white count is 14,400, hemoglobin is 10.3, hematocrit is 30, platelet count is 215,000. The patient's dig level this morning was *------*. The patient's sodium is 138, potassium 4.2, chloride 105, CO2 is 24. Her BUN is 16, creatinine 0.70 and her GFR is greater than 60. Her glucose is *------*. Her calcium is 9.0. The patient's TSH is 0.11. PT *------*. The patient does not exhibit any *------*. ASSESSMENT: 1. Atrial fibrillation with rapid ventricular response. 2. Sick sinus syndrome. *------* being 50 per minute ventricular response and going up to 150s per minute in spite of the patient being on *------* She also gets metoprolol 5 mg IV q.6 hours and a dig level is therapeutic. The patient is on digoxin 0.25 mg p.o. daily. In view of this, the patient is being transferred to [facility] for possibility of diagnosis of sick sinus syndrome. 3. Dehydration. Still being resolved. 4. Diabetes mellitus type 2. 5. Diabetic neuropathy. 6. Chronic lymphocytic leukemia in remission. 7. Chronic obstructive pulmonary disease. 8. Low TSH with normal T4 ? *------*. PLAN/RECOMMENDATION: The patient is being transferred to Cardiology in [facility] for possibility of the patient having sick sinus syndrome. All of this was discussed with the patient and also discussed with the hospitalist taking care of the patient. Would continue the patient's current medication which have been reviewed. Note: Thirty minutes spent on this patient with more than 50% of the time spent on direct patient care. Note the surrogate decision making was of high complexity in view of the patient's fluctuating heart rate and the patient still being in atrial fibrillation. Thank you. Will sign off. DICTATING PHYSICIAN: RADHA MALAGON M.D. [id number] PHY#: [id number] ID: [id number] JOB#: [id number] ACCT: [id number] cc: >
[2016-11-22] MEDS ORDERED: IPRATROPIUM BROMIDE 0.02% NEB 0.5 MG/2.5 ML AMPUL NEB SCH (23:00)
--- NOTE | 2016-11-23 10:50 | CONSULTATION REPORT E ---
Consultation Report NAME: BREANA BISWAS : 1940 AGE: 75Y DATE: 11/21/2016 325 A TO: RADHA MALAGON M.D. FROM: GOSIA GRIMES M.D. Requesting Physician NOTE: Patient seen at 9:00 a.m. I spent 45 minutes consulting this patient. REASON FOR CONSULTATION: Atrial fibrillation with rapid ventricular response. HISTORY OF PRESENT ILLNESS: The patient is a 75-year-old female with a past history of atrial fibrillation in 2013 with no recurrence. She said that last Wednesday she used the riding lawnmower to mow grass twice with rest in between. Each time she started having severe tiredness and some shortness of breath and also some palpitations. Subsequently these subsided, and she was okay until Wednesday. Subsequently again the patient, when she woke up on Wednesday morning, she had an episode of shortness of breath which lasted about 30 minutes. Also, the patient was feeling significantly tired, and this continued on and Wednesday, and then she came to the emergency room, where she was found to be in atrial fibrillation with rapid ventricular response. She denies any chest pain or discomfort. There was no PND or orthopnea. There was no leg edema. There were no TIA or CVA symptoms. PAST MEDICAL HISTORY: She has a past history of diastolic congestive heart failure. She has no history of hypertension. She has a history of diabetes mellitus type 2, insulin dependent. She denies any thyroid disease. There is no history of TIAs. There is no history of coronary artery disease or angina. There is no PND, orthopnea, or leg edema in the past. She has no history of chronic kidney disease. The patient is a diabetic, but she does not check her sugars regularly. She also has a history of chronic lymphocytic leukemia, in remission, diagnosed first in 2013. She is not on any treatment after the remission. She was briefly on anticoagulation such as Coumadin after a bout of atrial fibrillation in 2013. She also has a history of COPD which is mild. PAST SURGICAL HISTORY: Positive for: 1. Tonsillectomy. 2. Bone spur, left foot, left toe, and bone spur of right great toe, for which she has had surgeries. ALLERGIES: 1. Aspirin. 2. Ciprofloxacin. MEDICATIONS: Here include: 1. mg p.o. q. 4 hours p.r.n. 2. gel 15 grams p.o. and 30 grams p.o. p.r.n. hypoglycemia. 3. She is on dextrose 50%, 12.5 grams IV, and 25 grams IV p.r.n. 4. She did receive digoxin 0.25 mg p.o. daily, and also this morning she has received digoxin 0.5 mg IV push x1. 5. Lovenox at 40 mg subcutaneously x1 last night and q.a.m. today. 6. She is on Pepcid 20 mg p.o. q. 12 hours. 7. She is on Neurontin 300 mg p.o. q. 6 hours. 8. She is on glucagon 1 mg IM p.r.n. 9. She is on Accu-Chek's twice daily. 10. Humalog insulin as per sliding scale a.c. t.i.d. and at bedtime. 11. She is on albuterol via nebulizer q. 6 hours p.r.n. 12. She is on a Cardizem drip at 15 mg per hour continuously. 13. She is on normal saline at 133 mg. 14. She did receive metoprolol 5 mg IV x1 last night, and she is on metoprolol 5 mg IV q. 6 hours p.r.n. 15. She is on Zofran 4 mg p.o. q. 6 hours p.r.n. 16. She is on tramadol 50 mg p.o. q. 8 hours. 17. She is on trazodone 25 mg p.o. at bedtime. FAMILY HISTORY: She states her uncles had heart attacks, and also, carcinoma of the lung. Her mother of pancreatic cancer, father at age 23 in the invasion. REVIEW OF SYSTEMS: CONSTITUTIONAL: Denies fevers, chills, or rigors. Complains of generalized fatigue exertion. HEAD: No history of headaches or head injury. EYES: No history of amblyopia or diplopia. The patient wears glasses. Has no history of glaucoma. EARS: No history of hearing loss. No tinnitus. No history of recurrent ear infections. NOSE: No history of hayfever. No history of nosebleeds. No history of nasal polyps. MOUTH: No history of altered taste sensation. No history of ulcers in the mouth. No history of bleeding from the gums. THROAT: No history of odynophagia or dysphagia. No history or recurrent sore throat. SKIN: No history of psoriasis. No history of pruritus. No history of allergic reaction of the skin. NECK: No history of swelling, painful swelling in the neck. No history rigor. LUNGS: History of mild COPD. She quit smoking a long time ago. No cough or sputum production. No wheezing. No history of sleep apnea. No history of pulmonary embolism. No history of . CARDIAC: Denies history of hypertension. She has a past history of diastolic heart failure. She denies any recent symptoms of heart failure. There is no leg edema. There is no PND, orthopnea. There is no history of coronary artery disease, [place], or angina complaints. This is the second episode of atrial fibrillation, most likely the onset was 4 days ago. She has been on anticoagulation in the past after a bout of paroxysmal atrial fibrillation in 2013. GASTROINTESTINAL: No history of peptic ulcer disease. No history of GI bleed. No history of bleeding from the vagina or rectum. No history of abdominal pain. No history fatty food intolerance. No history of jaundice. MUSCULOSKELETAL: Does have some arthritis. No history of collagen vascular disease. RENAL: No history of chronic kidney disease. No history of hematuria, pyuria, or dysuria. ENDOCRINE: The patient has diabetes mellitus type 2, insulin dependent . No history of thyroid disease. No history of polyuria. The patient does not check her sugars. The patient appears to be dehydrated. CENTRAL NERVOUS SYSTEM: No history of TIA or CVA. No history of seizures, headaches, or migraines. No history of sleep apnea. PSYCHIATRIC: Denies history of anxiety or depression. States takes Desyrel to go to sleep at night. No history of suicidal ideation. No history of homicidal ideation. VASCULAR: No history of calf/buttock claudication. No history of DVT. HEMATOLOGICAL: History of chronic lymphocytic leukemia, seems to be in remission; she is not on any treatment at present. No history of bleeding diathesis. No history of clotting disorders. The patient's CHADS score is 3; has 1 for her age, 1 for her being a female, and 1 for diabetes mellitus. Hence, will need anticoagulation. PHYSICAL EXAMINATION: GENERAL: At present the patient is sitting up in a chair, does not appear to be in any major distress. On examination, the patient is well built and well nourished. She is well groomed. VITAL SIGNS: She is afebrile. Pulse is 115-125 beats per minute. Blood pressure is 96/49. Respirations are 15 per minute. O2 sat is 94% on 2 liters nasal cannula. HEAD: Atraumatic, normocephalic. EYES: Pupils are equal, round, reactive to light and accommodation. Extraocular movements are normal. There is no conjunctival pallor. There is no scleral icterus. EARS: Tympanic membranes are clear. External auditory canals are clear. There are no lesions of the pinnae. NOSE: There is no deviated nasal septum. There is no inflammation of the nasal mucous membranes. There are no nasal polyps. MOUTH: The mucous membranes of the mouth and tongue are very dry, suggestive of dehydration. There are no ulcers in the mouth. There is no bleeding from the gums. THROAT: There is no redness of the oropharynx. There are no exudates. SKIN: There are no skin rashes. There is no petechiae or ecchymosis. There are no skin lesions. NECK: Supple. There is no JVD. Carotids are equal. There is no bruit. There is no lymphadenopathy. There is no goiter. Trachea is center. LUNGS: Slightly diminished air entry and prolonged expiration with mild . HEART: S1 and S2 are heard. S1 is of variable intensity. There is no S3 gallop. There is no S4 gallop. There is a systolic murmur at the left sternal border and the apex. There is no rub. ABDOMEN: Soft, nontender. There is no hepatosplenomegaly. Bowel sounds are well heard. EXTREMITIES: Femorals are both slightly diminished. There are no femoral bruits. There is no pedal edema. There is no DVT or cellulitis. There is no cyanosis or clubbing. Capillary refill is normal. CENTRAL NERVOUS SYSTEM: The patient is conscious, awake, alert, oriented x3, with no focal deficits. PSYCHIATRIC: The patient's judgement and insight are intact. Her affect is normal. ADVANCED DIRECTIVE: The patient is FULL CODE. Her cousin, Gali Page, is her surrogate healthcare decision maker. SOCIAL HISTORY: The patient does not drink alcohol. She is a former smoker, quit smoking some time ago. DIAGNOSTIC STUDIES: Chest x-ray shows trace bilateral pleural effusions with very mild basilar atelectasis. EKG shows atrial fibrillation with rapid ventricular response. Low voltage in the frontal leads. ST depression probably rate related. The patient's white count is 5500, hemoglobin is 10.6, hematocrit 31.3, and platelet count is 193,000. The patient's sodium is 140.4, potassium 4.2, chloride is 105, CO2 is 25. The patient's BUN is 19, creatinine is , GFR is greater than 60. Glucose is 268. Calcium is 8.8, magnesium is 1.1. Her troponin-I remained negative x3. Her CPK and CPK-MB are negative. Her TSH is low at 0.11. Her free T4 is 1.79. IMPRESSION: 1. Atrial fibrillation with rapid ventricular response. Note that the patient CHADS score is 3. The patient already got a bolus of digoxin at 0.5 mg IV push about 5-10 minutes ago, and hence we will watch what happens. She is very dry, and hence we will give her a bolus of 250 normal saline. In view of the patient's NO score being 3, and the patient having no bleeding complications of anticoagulation, would increase the Lovenox to 75 mg subcutaneously q. 12 hours. The patient will need long-term anticoagulation. 2. Dehydration. Will continue the patient's IV normal saline. The patient already got a bolus of normal saline at 250 mL. 3. Diabetes mellitus type 2, insulin dependent. Continue her current medications, including her gabapentin for her neuropathy. 4. Chronic obstructive pulmonary disease. At present seems to be stable. The patient is on p.r.n. respiratory treatments. 5. Chronic lymphocytic leukemia. Seems to be in remission. Note: Forty-five minutes spent on this patient, more than 50% of that time spent in direct patient care. Medications have been reviewed, medications added, and IV fluids also increased with a bolus of 250 mL. As mentioned, the patient is a FULL CODE. Her cousin, Gali Page, is her surrogate healthcare decision maker. Note the decision making of high complexity, review of the patient's atrial fibrillation with rapid ventricular response. Also discussed the patient's management with other attending physicians on the case and also the nurse taking care of the patient. Discussed with the patient also. Will recheck the patient's digoxin and get a repeat EKG. Hopefully, when dehydration is overcome, then the patient will convert to a slower atrial fibrillation or convert to normal sinus rhythm. DICTATING PHYSICIAN: RADHA MALAGON M.D. [id number] PHY#: [id number] ID: [id number] JOB#: [id number] ACCT: [id number] cc:RADHA MALAGON M.D. >
== END 2016-11-22 14:05 | disposition short-term general hospital (02) | DRG 308 ==
LOC: ER 11:49 → 3W 14:57 → EH 15:20 → UNDOADMIN 15:20 → 3W 17:00 → EH 17:00
PROVIDERS: ADMIT Family Medicine; ATTEND Family Medicine
DX: I48.91 Unspecified atrial fibrillation (principal); J96.00 Acute respiratory failure, unspecified whether with hypoxia or hypercapnia; I50.31 Acute diastolic (congestive) heart failure; C91.11 Chronic lymphocytic leukemia of B-cell type in remission; I49.5 Sick sinus syndrome; E11.40 Type 2 diabetes mellitus with diabetic neuropathy, unspecified; E86.0 Dehydration; J44.9 Chronic obstructive pulmonary disease, unspecified; G62.9 Polyneuropathy, unspecified; E05.90 Thyrotoxicosis, unspecified without thyrotoxic crisis or storm; Z79.4 Long term (current) use of insulin; Z79.82 Long term (current) use of aspirin; Z88.1 Allergy status to other antibiotic agents; Z80.1 Family history of malignant neoplasm of trachea, bronchus and lung
CPT/HCPCS: 36415; 71020; 80048; 80053; 80162; 82550; 82553; 82962; 83735; 83880; 84439; 84443; 84484; 85025; 93005; 93010; 96361; 96365; 96375; 99291; J1160; J1650; J1815; J2060; J3490; J7030; J7050; J7620

== ENCOUNTER → 2016-12-07 | Outpatient (CLI) | payer MEDICARE, BC ==
[2016-12-07 17:54] LABS: ABSOLUTE BASOPHILS # (AUTO) 0.1 10^3/uL (0.0-0.2); ABSOLUTE EOSINOPHILS # (AUTO) 0.7 10^3/uL (0.0-0.6); ABSOLUTE LYMPHOCYTES (AUTO) 1.9 10^3/uL (0.5-4.7); ABSOLUTE MONOCYTES (AUTO) 0.6 10^3/uL (0.1-1.4); EOSINOPHILS % (AUTO) 7.1 % (0-6); HEMOGLOBIN 10.4 g/dL (12.0-15.5); HGB HCT DIFFERENCE 0.2; LYMPHOCYTES % (AUTO) 18.4 % (13-45); MEAN CORPUSCULAR HEMOGLOBIN 26.8 pg (27.0-33.4); MEAN CORPUSCULAR HGB CONC 33.6 g/dL (32.0-36.0); MEAN CORPUSCULAR VOLUME 80 fl (80-97); MONOCYTES % (AUTO) 6.1 % (3-13); RED BLOOD COUNT 3.89 10^6/uL (3.72-5.28); RED CELL DISTRIBUTION WIDTH 15.6 % (11.5-14.0); SEGMENTED NEUTROPHILS % (AUTO) 67.4 % (42-78); WHITE BLOOD COUNT 10.5 10^3/uL (4.0-10.5)
[2016-12-07 18:23] LABS: ANION GAP 13 (5-19); BLOOD UREA NITROGEN 17 mg/dL (7-20); C-REACTIVE PROTEIN 38.2 mg/L (<10.0); CALCIUM 9.7 mg/dL (8.4-10.2); CARBON DIOXIDE 32 mmol/L (22-30); CHLORIDE 93 mmol/L (98-107); CREATININE RESULT 0.95 mg/dL (0.52-1.25); GLUCOSE 218 mg/dL (75-110); POTASSIUM 5.3 mmol/L (3.6-5.0); SODIUM 138.1 mmol/L (137-145)
== END ==
LOC: OD 17:15
PROVIDERS: ATTEND Family Medicine
DX: I50.30 Unspecified diastolic (congestive) heart failure (principal); L03.116 Cellulitis of left lower limb
CPT/HCPCS: 36415; 80048; 85025; 86140

== ENCOUNTER → 2017-02-19 | Outpatient (CLI) | payer MEDICARE, BC ==
--- NOTE | 2017-02-19 16:11 | RADIOLOGY REPORT (SQ) ---
EXAM DESCRIPTION: CT CHEST WITHOUT COMPLETED DATE/TIME: 02/19/2017 2:39 pm REASON FOR STUDY: OTHER NONSPECIFIC ABNORMAL FINDING OF LUNG FIELD (R91.8) R91.8 OTHER NONSPECIFIC ABNORMAL FINDING OF LUNG FIELD COMPARISON: CT angio chest 02/18/2014 CT chest 08/30/2013 TECHNIQUE: CT scan performed of the chest without intravenous contrast. Images reviewed with lung, soft tissue and bone windows. Reconstructed coronal and sagittal MPR images reviewed. All images st ored on PACS. All CT scanners at this facility use dose modulation, iterative reconstruction, and/or weight based d osing when appropriate to reduce radiation dose to as low as reasonably achievable (ALARA). [facility]: Dose Right [facility]: CareDose [facility]: Dose Right [facility]: Teradose 4D [facility]: iPling RADIATION DOSE: CT Rad equipment meets quality standard of care and radiation dose reduction techniq ues were employed. CTDIvol: 4.4 mGy. DLP: 175 mGy-cm. mGy. LIMITATIONS: No technical limitations. FINDINGS: LUNGS AND PLEURA: No acute infiltrates. No pleural effusions. No pneumothorax. There are patchy areas of ground-glass opacity of both lung bases with thickened interlobular septa, likely indicating very mild fluid overload or congestive failure. HILAR AND MEDIASTINAL STRUCTURES: 1.5 x 1 cm precarinal lymph node, stable compared to exams from 201 4. Other prominent mediastinal lymph nodes seen in 2014 have resolved. HEART AND VASCULAR STRUCTURES: No aneurysm. No pericardial effusion. Very heavy coronary artery bridget cifications UPPER ABDOMEN: No significant findings. Limited exam. THYROID AND OTHER SOFT TISSUES: No masses. No adenopathy. BONES: No significant finding. HARDWARE: None in the chest. OTHER: No other significant findings. IMPRESSION: Mild bibasilar ground-glass lung opacity with thickened interlobular septa likely repres enting mild fluid overload or congestive failure. Heavy coronary artery calcifications. Stable 1.5 x 1 cm precarinal lymph node as compared to studies from 2014 TECHNICAL DOCUMENTATION: JOB ID: [id number] Quality ID # [id number]: Final reports with documentation of one or more dose reduction techniques (e.g., Au tomated exposure control, adjustment of the mA and/or kV according to patient size, use of iterative reconstruction technique) 2010 [employer]- All Rights Reserved
== END ==
LOC: RAD 13:44
PROVIDERS: ATTEND Family Medicine
DX: R91.8 Other nonspecific abnormal finding of lung field (principal); I25.10 Atherosclerotic heart disease of native coronary artery without angina pectoris
CPT/HCPCS: 71250

== ENCOUNTER → 2017-04-02 | Outpatient (CLI) | payer BC, MEDICARE ==
[2017-04-02 17:04] LABS: ABSOLUTE EOSINOPHILS # (AUTO) 0.3 10^3/uL (0.0-0.6); ABSOLUTE LYMPHOCYTES (AUTO) 1.4 10^3/uL (0.5-4.7); ABSOLUTE MONOCYTES (AUTO) 0.4 10^3/uL (0.1-1.4); ABSOLUTE NEUT (AUTO) 5.5 10^3/uL (1.7-8.2); BASOPHILS % (AUTO) 0.4 % (0-2); EOSINOPHILS % (AUTO) 3.4 % (0-6); HEMATOCRIT 31.3 % (36.0-47.0); HEMOGLOBIN 10.7 g/dL (12.0-15.5); LYMPHOCYTES % (AUTO) 18.2 % (13-45); MEAN CORPUSCULAR HEMOGLOBIN 26.6 pg (27.0-33.4); MEAN CORPUSCULAR HGB CONC 34.1 g/dL (32.0-36.0); MEAN CORPUSCULAR VOLUME 78 fl (80-97); MONOCYTES % (AUTO) 5.7 % (3-13); PLATELET COUNT 199 10^3/uL (150-450); RED BLOOD COUNT 4.01 10^6/uL (3.72-5.28); RED CELL DISTRIBUTION WIDTH 16.7 % (11.5-14.0); SEGMENTED NEUTROPHILS % (AUTO) 72.3 % (42-78); TOTAL CELLS COUNTED % (AUTO) 100 %; WHITE BLOOD COUNT 7.6 10^3/uL (4.0-10.5)
[2017-04-02 17:22] LABS: ALANINE AMINOTRANSFERASE 25 U/L (9-52); ALBUMIN 4.4 g/dL (3.5-5.0); ALKALINE PHOSPHATASE 45 U/L (38-126); ANION GAP 9 (5-19); ASPARTATE AMINO TRANSFERASE 20 U/L (14-36); BILIRUBIN,DIRECT 0.3 mg/dL (0.0-0.4); BILIRUBIN,TOTAL 1.2 mg/dL (0.2-1.3); BLOOD UREA NITROGEN 16 mg/dL (7-20); CARBON DIOXIDE 31 mmol/L (22-30); CHLORIDE 96 mmol/L (98-107); CHOLESTEROL 167.59 mg/dL (0-200); GLUCOSE 177 mg/dL (75-110); POTASSIUM 4.5 mmol/L (3.6-5.0); SODIUM 136.1 mmol/L (137-145); TOTAL PROTEIN 6.8 g/dL (6.3-8.2)
[2017-04-05 17:24] LABS: ANION GAP 10 (5-19); BLOOD UREA NITROGEN 23 mg/dL (7-20); CALCIUM 10.3 mg/dL (8.4-10.2); CARBON DIOXIDE 32 mmol/L (22-30); CHLORIDE 97 mmol/L (98-107); GLUCOSE 129 mg/dL (75-110); POTASSIUM 4.6 mmol/L (3.6-5.0); SODIUM 138.5 mmol/L (137-145)
== END ==
LOC: OD 15:30
PROVIDERS: ATTEND Family Medicine
DX: E11.65 Type 2 diabetes mellitus with hyperglycemia (principal); D50.9 Iron deficiency anemia, unspecified; Z79.899 Other long term (current) drug therapy
CPT/HCPCS: 36415; 80048; 80053; 82465; 83036; 83718; 85025

== ENCOUNTER 2017-06-23 18:11 | Observation (INO) | payer MEDICARE ==
--- NOTE | 2017-06-23 18:48 | RADIOLOGY REPORT (SQ) ---
EXAM DESCRIPTION: CT HEAD WITHOUT COMPLETED DATE/TIME: 06/23/2017 6:33 pm REASON FOR STUDY: fall/blood thinners COMPARISON: 02/28/2014 TECHNIQUE: Axial images acquired through the brain without intravenous contrast. Images reviewed wi th bone, brain and subdural windows. Images stored on PACS. All CT scanners at this facility use dose modulation, iterative reconstruction, and/or weight based d osing when appropriate to reduce radiation dose to as low as reasonably achievable (ALARA). [facility]: Dose Right [facility]: CareDose [facility]: Dose Right [facility]: Teradose 4D [facility]: [employer] RADIATION DOSE: CT Rad equipment meets quality standard of care and radiation dose reduction techniq ues were employed. CTDIvol: 53.2 mGy. DLP: 1070 mGy-cm. mGy. LIMITATIONS: None. FINDINGS: VENTRICLES: Stable CEREBRUM: No masses. No hemorrhage. No midline shift. No evidence for acute infarction. CEREBELLUM: No masses. No hemorrhage. No alteration of density. No evidence for acute infarction. EXTRAAXIAL SPACES: No fluid collections. No masses. ORBITS AND GLOBE: No intra- or extraconal masses. Normal contour of globe without masses. CALVARIUM: No fracture. PARANASAL SINUSES: Mucosal thickening right maxillary antrum. No fluid levels. SOFT TISSUES: Scalp hematoma posteriorly on the right. Underlying calvarium intact. OTHER: No other significant finding. IMPRESSION: No acute intracranial hemorrhage. EVIDENCE OF ACUTE STROKE: NO. COMMENT: Quality ID # 436: Final reports with documentation of one or more dose reduction techniques (e.g., Automated exposure control, adjustment of the mA and/or kV according to patient size, use of iterative reconstruction technique) TECHNICAL DOCUMENTATION: JOB ID: [id number] [employer]- All Rights Reserved Reading location - IP/workstation name: [email or web address]
--- NOTE | 2017-06-23 18:57 | RADIOLOGY REPORT (SQ) ---
EXAM DESCRIPTION: CHEST SINGLE VIEW COMPLETED DATE/TIME: 06/23/2017 6:43 pm REASON FOR STUDY: SOB COMPARISON: 11/20/2016 EXAM PARAMETERS: NUMBER OF VIEWS: One view. TECHNIQUE: Single frontal radiographic view of the chest acquired. RADIATION DOSE: NA LIMITATIONS: None. FINDINGS: LUNGS AND PLEURA: Mild chronic interstitial changes are present. There is no localized in filtrate. There is no pleural effusion. MEDIASTINUM AND HILAR STRUCTURES: No masses. Contour normal. HEART AND VASCULAR STRUCTURES: Heart size is borderline. There is no failure. BONES: No acute findings. HARDWARE: None in the chest. OTHER: No other significant finding. IMPRESSION: Chronic lung changes with no acute pulmonary disease. Borderline cardiomegaly without f ailure. TECHNICAL DOCUMENTATION: JOB ID: [id number] [employer]- All Rights Reserved Reading location - IP/workstation name: [email or web address]
--- NOTE | 2017-06-23 19:33 | ER Document Report ---
ED Fall - General Mode of Arrival: Medic Information source: Patient TRAVEL OUTSIDE OF THE [place] IN LAST 30 DAYS: No - HPI Patient complains to provider of: Head injury Occurred: This afternoon Context: Lost balance Associated symptoms: Other - see notes above Location of injury/pain: Other - see notes above <ASCENCION MENDIOLA - Last Filed: 06/23/17 19:25> <HAWK TRONCOSO - Last Filed: 06/24/17 04:36> - General Chief Complaint: Fall Injury Stated Complaint: FALL/LACERATION TO BACK OF HEAD Time Seen by Provider: 06/23/17 18:45 Notes: 76 year old female on [place] presents to the ED via EMS after falling off a ladder when attempting to change a light bulb earlier this afternoon. Patient reports that while on the ladder she placed her left food on an unstable tractor seat, lost her balance, and proceeded to fall and hit the posterior aspect of her head. At bedside, patient was complaining of a head injury. (ASCENCION MENDIOLA) - Related data Allergies/Adverse Reactions: aspirin [Aspirin] Allergy (Intermediate, Verified 11/20/16 12:00) Hives ciprofloxacin [Ciprofloxacin] Allergy (Intermediate, Verified 11/20/16 12:00) itching Past Medical History - General Information source: Patient - Social History Smoking Status: Unknown if Ever Smoked Family History: None - Past Medical History Cardiac Medical History: Reports: Hx Congestive Heart Failure - Diastolic dysfunction Denies: Hx Heart Attack, Hx Hypertension Pulmonary Medical History: Reports: Hx COPD Denies: Hx Asthma Neurological Medical History: Denies: Hx Cerebrovascular Accident, Hx Seizures Endocrine Medical History: Reports: Hx Diabetes Mellitus Type 2 Renal/ Medical History: Denies: Hx Peritoneal Dialysis Malignancy Medical History: Reports: Hx Leukemia GI Medical History: Denies: Hx Hepatitis, Hx Hiatal Hernia, Hx Ulcer Psychiatric Medical History: Denies: Hx Depression Infectious Medical History: Denies: Hx Hepatitis Past Surgical History: Reports: Hx Orthopedic Surgery, Hx Tonsillectomy. Denies : Hx Hysterectomy, Hx Mastectomy, Hx Open Heart Surgery, Hx Pacemaker <ASCENCION MENDIOLA - Last Filed: 06/23/17 19:25> Review of Systems - Review of Systems Constitutional: No symptoms reported EENT: No symptoms reported Cardiovascular: No symptoms reported Respiratory: No symptoms reported Gastrointestinal: No symptoms reported Genitourinary: No symptoms reported Female Genitourinary: No symptoms reported Musculoskeletal: No symptoms reported Skin: See HPI, Other - head laceration Hematologic/Lymphatic: No symptoms reported Neurological/Psychological: No symptoms reported -: Yes All other systems reviewed and negative <ASCENCION MENDIOLA - Last Filed: 06/23/17 19:25> Physical Exam - General General appearance: Alert In distress: None - HEENT Head: Other - 4 cm bleeding laceration to the posterior aspect of the right head.. No: Normocephalic, Atraumatic Eyes: Normal Extraocular movements intact: Yes Pupils: PERRL - Respiratory Respiratory status: No respiratory distress - Cardiovascular Rhythm: Regular - Extremities General upper extremity: Other - skin tears to the right forearm and hand.. No : Normal inspection General lower extremity: Normal inspection - Neurological Neuro grossly intact: Yes - Psychological Associated symptoms: Normal affect, Normal mood - Skin Skin Temperature: Warm Skin Moisture: Dry Skin irregularity: other - see head and extremity exam above <ANDREA MENDIOLAON - Last Filed: 06/23/17 19:25> - Vital signs Vitals: Resp Pulse Ox 18 98 06/23/17 18:37 06/23/17 18:37 Course <MARLENAASCENCION - Last Filed: 06/23/17 19:25> - Laboratory Result Diagrams: 06/23/17 20:58 06/23/17 20:58 - Diagnostic Test Radiology reviewed: Reports reviewed - EKG Interpretation by Me EKG shows normal: Sinus rhythm Rate: Normal <HAWK TRONCOSO - Last Filed: 06/24/17 04:36> - Re-evaluation Re-evalutation: 06/24/17 Patient is a 76-year-old female who lives alone who had a mechanical fall trying to change a light bulb. Patient has a laceration to her posterior right head which has been repaired. She has skin tears to her right upper extremity which have been cleaned and dressed. Otherwise, there are no acute findings on the patient's imaging. She is however a little off balance when she is trying to walk around. She initially was having some hypoxemia although that seems to have resolved. There is no evidence for vascular congestion on her CT scan. Due to the patient living alone and having some difficulty with balance, I think it is best she is kept for observation. She has a friend who is supposed to be coming up to stay with her in the morning. Discussed with the hospitalist service. Patient will be admitted to general medical floor. Stable time of admission. (HAWK TRONCOSO) - Vital Signs Vital signs: Temp Pulse Resp BP Pulse Ox 29 H 142/64 H 98 06/24/17 01:01 06/24/17 01:01 06/24/17 01:01 - Laboratory Laboratory results interpreted by me: 06/23/17 06/23/17 06/23/17 20:58 20:58 20:58 WBC 12.6 H Hgb 11.2 L Hct 34.0 L MCV 78 L MCH 25.7 L RDW 16.0 H Seg Neutrophils % 85.6 H Lymphocytes % 8.4 L Absolute Neutrophils 10.8 H PT 16.7 H Glucose 252 H Total Bilirubin 1.5 H NT-Pro-B Natriuret Pep Urine Glucose (UA) Urine Ketones 06/23/17 06/24/17 20:58 01:33 WBC Hgb Hct MCV MCH RDW Seg Neutrophils % Lymphocytes % Absolute Neutrophils PT Glucose Total Bilirubin NT-Pro-B Natriuret Pep 1320 H Urine Glucose (UA) 150 H Urine Ketones TRACE H Procedures - Laceration/Wound Repair Right Head Wound length (cm): 4 Wound's Depth, Shape: Irregular Laceration pre-procedure: Sterile PPE donned, Sterile drapes applied Anesthetic type: 1% Lidocaine Wound explored: Clean Wound Repaired With: Sutures Suture Size/Type: Vicryl Number of Sutures: 5 Layer Closure?: No Post-procedure wound care: Sterile dressing applied Post-procedure NV exam normal: No Complications: No <HAWK TRONCOSO - Last Filed: 06/24/17 04:36> Discharge <ASCENCION MENDIOLA - Last Filed: 06/23/17 19:25> - Discharge Admitting Provider: Hospitalist - [facility] Unit Admitted: Telemetry <HAWK TRONCOSO - Last Filed: 06/24/17 04:36> - Discharge Clinical Impression: Head injury with loss of consciousness Scalp laceration Qualifiers: Encounter type: initial encounter Qualified Code(s): S01.01XA - Laceration without foreign body of scalp, initial encounter Arm laceration Qualifiers: Encounter type: initial encounter Laterality: right Qualified Code(s): S41.111A - Laceration without foreign body of right upper arm, initial encounter Condition: Stable Disposition: ADMITTED OBSERVATION Scribe Attestation: 06/24/17 04:36 I personally performed the services described in the documentation, reviewed and edited the documentation which was dictated to the scribe in my presence, and it accurately records my words and actions. (HAWK TRONCOSO) Scribe Documentation - Scribe Written by Scribe:: Santana Murphy, 06/23/2017 1936 acting as scribe for :: [place] <ASCENCION MENDIOLA - Last Filed: 06/23/17 19:25>
--- NOTE | 2017-06-23 21:14 | RADIOLOGY REPORT (SQ) ---
EXAM DESCRIPTION: CT CHEST WITHOUT; CT ABD/PELVIS NO ORAL OR IV COMPLETED DATE/TIME: 06/23/2017 8:40 pm REASON FOR STUDY: fall, injury, hypoxia; fall, pain, injury COMPARISON: 08/30/2013 TECHNIQUE: CT scan of the chest performed without intravenous contrast using helical scanning techni que. Images reviewed with lung, soft tissue and bone windows. Reconstructed coronal and sagittal MPR images reviewed. All images stored on PACS. CT scan of the abdomen and pelvis performed without intravenous contrast and withoutoral contrast usi ng helical scanning technique with dynamic intravenous contrast injection. Images reviewed with lung , soft tissue and bone windows. Reconstructed coronal and sagittal MPR images reviewed. All images stored on PACS. All CT scanners at this facility use dose modulation, iterative reconstruction, and/or weight based d osing when appropriate to reduce radiation dose to as low as reasonably achievable (ALARA). [facility]: Dose Right [facility]: CareDose [facility]: Dose Right [facility]: Teradose 4D [facility]: [employer] RADIATION DOSE: CT Rad equipment meets quality standard of care and radiation dose reduction techniq ues were employed. CTDIvol: 9.9 mGy. DLP: 700 mGy-cm. mGy. LIMITATIONS: No technical limitations. FINDINGS: CHEST: AXILLAE: No adenopathy. CHEST WALL: No masses. No subcutaneous air. LUNGS: No nodules or masses. No pneumothorax. No infiltrates. PLEURA: No effusions. No calcifications. THYROID: No masses or significant asymmetry. HILAR AND MEDIASTINAL STRUCTURES: No identified masses or abnormal nodes. AORTA AND GREAT VESSELS: No aneurysm. HEART: Extensive coronary artery calcification. HARDWARE AND LIFELINES: None. BONES: No significant finding. OTHER: No other significant finding. ABDOMEN AND PELVIS: LIVER: Normal size. No masses. No dilated ducts. SPLEEN: Normal size. No focal lesions. PANCREAS: No masses. No significant calcifications. No adjacent inflammation or peripancreatic flui d collections. Pancreatic duct not dilated. GALLBLADDER: No identified stones by CT criteria. No inflammatory changes to suggest cholecystitis. ADRENAL GLANDS: No significant masses or asymmetry. RIGHT KIDNEY AND URETER: No solid masses. Assessment limited by lack of IV contrast. No significant calcifications. No hydronephrosis or hydroureter. LEFT KIDNEY AND URETER: No solid masses. Assessment limited by lack of IV contrast. No significant calcifications. No hydronephrosis or hydroureter. AORTA AND VESSELS: No aneurysm. RETROPERITONEUM: No retroperitoneal adenopathy, hemorrhage or masses. APPENDIX: Normal. LARGE AND SMALL BOWEL: No dilatation. No masses. No wall thickening. ABDOMINAL WALL: No hernia or masses. PERITONEAL CAVITY: No free air. No free fluid. No peritoneal implants or masses. PELVIS: Fibroid uterus. Normal bladder. BONES: No significant or acute findings. OTHER: No other significant finding. HEART AND VASCULAR STRUCTURES: Extensive coronary artery calcification. IMPRESSION: NORMAL CT OF THE CHEST WITHOUT INTRAVENOUS CONTRAST. NORMAL CT OF THE ABDOMEN AND PELVIS WITHOUT INTRAVENOUS CONTRAST. TECHNICAL DOCUMENTATION: JOB ID: [id number] Quality ID # [id number]: Final reports with documentation of one or more dose reduction techniques (e.g., Au tomated exposure control, adjustment of the mA and/or kV according to patient size, use of iterative reconstruction technique) 2010 [employer]- All Rights Reserved Reading location - IP/workstation name: [email or web address]
--- NOTE | 2017-06-23 21:14 | RADIOLOGY REPORT (SQ) ---
EXAM DESCRIPTION: CT CHEST WITHOUT; CT ABD/PELVIS NO ORAL OR IV COMPLETED DATE/TIME: 06/23/2017 8:40 pm REASON FOR STUDY: fall, injury, hypoxia; fall, pain, injury COMPARISON: 08/30/2013 TECHNIQUE: CT scan of the chest performed without intravenous contrast using helical scanning techni que. Images reviewed with lung, soft tissue and bone windows. Reconstructed coronal and sagittal MPR images reviewed. All images stored on PACS. CT scan of the abdomen and pelvis performed without intravenous contrast and withoutoral contrast usi ng helical scanning technique with dynamic intravenous contrast injection. Images reviewed with lung , soft tissue and bone windows. Reconstructed coronal and sagittal MPR images reviewed. All images stored on PACS. All CT scanners at this facility use dose modulation, iterative reconstruction, and/or weight based d osing when appropriate to reduce radiation dose to as low as reasonably achievable (ALARA). [facility]: Dose Right [facility]: CareDose [facility]: Dose Right [facility]: Teradose 4D [facility]: [employer] RADIATION DOSE: CT Rad equipment meets quality standard of care and radiation dose reduction techniq ues were employed. CTDIvol: 9.9 mGy. DLP: 700 mGy-cm. mGy. LIMITATIONS: No technical limitations. FINDINGS: CHEST: AXILLAE: No adenopathy. CHEST WALL: No masses. No subcutaneous air. LUNGS: No nodules or masses. No pneumothorax. No infiltrates. PLEURA: No effusions. No calcifications. THYROID: No masses or significant asymmetry. HILAR AND MEDIASTINAL STRUCTURES: No identified masses or abnormal nodes. AORTA AND GREAT VESSELS: No aneurysm. HEART: Extensive coronary artery calcification. HARDWARE AND LIFELINES: None. BONES: No significant finding. OTHER: No other significant finding. ABDOMEN AND PELVIS: LIVER: Normal size. No masses. No dilated ducts. SPLEEN: Normal size. No focal lesions. PANCREAS: No masses. No significant calcifications. No adjacent inflammation or peripancreatic flui d collections. Pancreatic duct not dilated. GALLBLADDER: No identified stones by CT criteria. No inflammatory changes to suggest cholecystitis. ADRENAL GLANDS: No significant masses or asymmetry. RIGHT KIDNEY AND URETER: No solid masses. Assessment limited by lack of IV contrast. No significant calcifications. No hydronephrosis or hydroureter. LEFT KIDNEY AND URETER: No solid masses. Assessment limited by lack of IV contrast. No significant calcifications. No hydronephrosis or hydroureter. AORTA AND VESSELS: No aneurysm. RETROPERITONEUM: No retroperitoneal adenopathy, hemorrhage or masses. APPENDIX: Normal. LARGE AND SMALL BOWEL: No dilatation. No masses. No wall thickening. ABDOMINAL WALL: No hernia or masses. PERITONEAL CAVITY: No free air. No free fluid. No peritoneal implants or masses. PELVIS: Fibroid uterus. Normal bladder. BONES: No significant or acute findings. OTHER: No other significant finding. HEART AND VASCULAR STRUCTURES: Extensive coronary artery calcification. IMPRESSION: NORMAL CT OF THE CHEST WITHOUT INTRAVENOUS CONTRAST. NORMAL CT OF THE ABDOMEN AND PELVIS WITHOUT INTRAVENOUS CONTRAST. TECHNICAL DOCUMENTATION: JOB ID: [id number] Quality ID # [id number]: Final reports with documentation of one or more dose reduction techniques (e.g., Au tomated exposure control, adjustment of the mA and/or kV according to patient size, use of iterative reconstruction technique) 2010 [employer]- All Rights Reserved Reading location - IP/workstation name: [email or web address]
[2017-06-23 21:15] LABS: ABSOLUTE BASOPHILS # (AUTO) 0.1 10^3/uL (0.0-0.2); ABSOLUTE EOSINOPHILS # (AUTO) 0.2 10^3/uL (0.0-0.6); ABSOLUTE LYMPHOCYTES (AUTO) 1.1 10^3/uL (0.5-4.7); ABSOLUTE MONOCYTES (AUTO) 0.5 10^3/uL (0.1-1.4); ABSOLUTE NEUT (AUTO) 10.8 10^3/uL (1.7-8.2); BASOPHILS % (AUTO) 0.4 % (0-2); EOSINOPHILS % (AUTO) 1.3 % (0-6); HEMOGLOBIN 11.2 g/dL (12.0-15.5); LYMPHOCYTES % (AUTO) 8.4 % (13-45); MEAN CORPUSCULAR HEMOGLOBIN 25.7 pg (27.0-33.4); MEAN CORPUSCULAR VOLUME 78 fl (80-97); MONOCYTES % (AUTO) 4.3 % (3-13); PLATELET COUNT 207 10^3/uL (150-450); RED BLOOD COUNT 4.36 10^6/uL (3.72-5.28); SEGMENTED NEUTROPHILS % (AUTO) 85.6 % (42-78); TOTAL CELLS COUNTED % (AUTO) 100 %; WHITE BLOOD COUNT 12.6 10^3/uL (4.0-10.5)
--- NOTE | 2017-06-23 21:15 | RADIOLOGY REPORT (SQ) ---
EXAM DESCRIPTION: CT CERVICAL SPINE WITHOUT COMPLETED DATE/TIME: 06/23/2017 8:40 pm REASON FOR STUDY: fall, pain COMPARISON: None. TECHNIQUE: Axial images acquired through the cervical spine without intravenous contrast. Images re viewed with lung, soft tissue and bone windows. Reconstructed coronal and sagittal MPR images review ed. Images stored on PACS. All CT scanners at this facility use dose modulation, iterative reconstruction, and/or weight based d osing when appropriate to reduce radiation dose to as low as reasonably achievable (ALARA). [facility]: Dose Right [facility]: CareDose [facility]: Dose Right [facility]: Teradose 4D [facility]: [employer] RADIATION DOSE: CT Rad equipment meets quality standard of care and radiation dose reduction techniq ues were employed. CTDIvol: 19.0 mGy. DLP: 379 mGy-cm. mGy. LIMITATIONS: None. FINDINGS: ALIGNMENT: Anatomic. MINERALIZATION: Normal. VERTEBRAL BODIES: No fractures or dislocation. DISCS: Multilevel disc space narrowing with osteophytes. FACETS, LATERAL MASSES, POSTERIOR ELEMENTS: Facet arthropathy. No fractures. No dislocation. No ac penobscot findings. HARDWARE: None in the spine. VISUALIZED RIBS: No fractures. LUNG APICES AND SOFT TISSUES: No significant or acute findings. OTHER: No other significant finding. IMPRESSION: CHRONIC DEGENERATIVE CHANGES. NO ACUTE FINDINGS. TECHNICAL DOCUMENTATION: JOB ID: [id number] Quality ID # [id number]: Final reports with documentation of one or more dose reduction techniques (e.g., Au tomated exposure control, adjustment of the mA and/or kV according to patient size, use of iterative reconstruction technique) 2010 [employer]- All Rights Reserved Reading location - IP/workstation name: [email or web address]
[2017-06-23 21:39] LABS: ALANINE AMINOTRANSFERASE 34 U/L (9-52); ALBUMIN 4.2 g/dL (3.5-5.0); ALKALINE PHOSPHATASE 40 U/L (38-126); ANION GAP 13 (5-19); ASPARTATE AMINO TRANSFERASE 33 U/L (14-36); BILIRUBIN,DIRECT 0.3 mg/dL (0.0-0.4); BILIRUBIN,TOTAL 1.5 mg/dL (0.2-1.3); BLOOD UREA NITROGEN 16 mg/dL (7-20); CALCIUM 9.6 mg/dL (8.4-10.2); CARBON DIOXIDE 30 mmol/L (22-30); CHLORIDE 98 mmol/L (98-107); CREATINE KINASE 59 U/L (30-135); GLUCOSE 252 mg/dL (75-110); POTASSIUM 4.3 mmol/L (3.6-5.0); SODIUM 141.2 mmol/L (137-145); TOTAL PROTEIN 6.6 g/dL (6.3-8.2)
[2017-06-23 21:49] LABS: CREATINE KINASE MB 1.57 ng/mL (<4.55); NT PRO BNP 1320 pg/mL (<450)
[2017-06-23 21:51] LABS: TROPONIN I < 0.012 ng/mL
[2017-06-23 21:56] LABS: INTERNATIONAL RATION (INR) 1.28; PROTHROMBIN TIME 16.7 SEC (11.4-15.4)
--- NOTE | 2017-06-23 23:46 | EKG REPORT ---
SEVERITY:- NORMAL ECG - SINUS RHYTHM : Confirmed by: Faustina Mehta 23-Jun-2017 23:45:28
[2017-06-24] MEDS ORDERED: OXYCODONE-ACETAMINOPHEN 5-325 MG TABLET PO PRN (01:51)
[2017-06-24] MEDS ORDERED: ONDANSETRON HCL INJ/PF 4 MG/2 ML SDV IV PRN (01:51)
[2017-06-24] MEDS ORDERED: DEXTROSE 50%-WATER 25 GM/50 ML DISP.SYRIN IV PRN ×2 (01:59)
[2017-06-24] MEDS ORDERED: GLUCAGON,HUMAN RECOMB 1 MG INJ IM PRN (01:59)
[2017-06-24] MEDS ORDERED: DEXTROSE 40% GEL 15 GM TUBE PO PRN ×2 (01:59)
[2017-06-24 02:11] LABS: APPEARANCE,URINE CLEAR; BILIRUBIN,URINE NEGATIVE (NEGATIVE); COLOR,URINE YELLOW; GLUCOSE, URINE 150 mg/dL (NEGATIVE); KETONES,URINE TRACE mg/dL (NEGATIVE); LEUKOCYTE ESTERASE,URINE NEGATIVE (NEGATIVE); NITRITE,URINE NEGATIVE (NEGATIVE); PROTEIN,URINE NEGATIVE (NEGATIVE); URINE SPECIFIC GRAVITY 1.013; UROBILINOGEN,URINE NEGATIVE mg/dL (<2.0)
--- NOTE | 2017-06-24 02:45 | PDOC H&P ---
History of Present Illness Admission Date/PCP: 06/24/17 02:04 CHAD ALCALA MD History of Present Illness: BREANA BISWAS is a 76 year old female patient presents after she involved in mechanical fall. Patient reports this while she is trying to change bulb in her garage standing on ladder when she lost her balance and landed on hard surface and i injured her head. She noticed to have lacerations on her head which requires stitching. Patient is a known case of A. fib and for which she has been on Eliquis but fortunately her CT scan is negative for intracranial bleeding. Patient denied any dizziness, palpitation, syncope, nausea or vomiting at the time of accident. Currently patient is stable but she has some balance problem for which we will keep her overnight. Past Medical History Cardiac Medical History: Reports: Congestive Heart Failure - Diastolic dysfunction Denies: Myocardial Infarction, Hypertension Pulmonary Medical History: Reports: Chronic Obstructive Pulmonary Disease (COPD) Denies: Asthma Neurological Medical History: Denies: Seizures Endocrine Medical History: Reports: Diabetes Mellitus Type 2 Malignancy Medical History: Reports: Leukemia GI Medical History: Denies: Hepatitis, Hiatal Hernia Psychiatric Medical History: Denies: Depression Hematology: Denies: Anemia, Sickle Cell Disease Past Surgical History Past Surgical History: Reports: Orthopedic Surgery, Tonsillectomy Denies: Amputation, Hysterectomy, Mastectomy, Pacemaker Social History Smoking Status: Former Smoker Frequency of Alcohol Use: None Hx Recreational Drug Use: No Drugs: None Hx Prescription Drug Abuse: No Family History Family History: None Parental Family History Reviewed: Yes Children Family History Reviewed: Yes Sibling(s) Family History Reviewed.: Yes Medication/Allergy Home Medications: Furosemide [Lasix 40 mg Tablet] 40 mg PO DAILY 11/20/16 Gabapentin 300 mg PO Q6 11/20/16 Insulin Lispro [Humalog Kwikpen U-100] 0 units SQ .SLIDING SCALE QHSP PRN Insulin NPH Human Isophane [Humulin N Kwikpen] 0 units SQ . SLIDING SCALE Metformin HCl [Glucophage] 1,000 mg PO Q12 11/20/16 Tramadol HCl [Ultram 50 mg Tablet] 50 mg PO Q8 11/20/16 Trazodone HCl [Desyrel 50 mg Tablet] 25 mg PO HSP PRN 11/20/16 Allergies/Adverse Reactions: aspirin [Aspirin] Allergy (Intermediate, Verified 11/20/16 12:00) Hives ciprofloxacin [Ciprofloxacin] Allergy (Intermediate, Verified 11/20/16 12:00) itching Review of Systems Constitutional: ABSENT: chills, fever(s), headache(s), weight gain, weight loss Cardiovascular: ABSENT: chest pain, dyspnea on exertion, edema, orthropnea, palpitations Gastrointestinal: ABSENT: abdominal pain, constipation, diarrhea, hematemesis, hematochezia, nausea, vomiting Neurological: ABSENT: abnormal gait, abnormal speech, confusion, dizziness, focal weakness, syncope Psychiatric: ABSENT: anxiety, depression, homidical ideation, suicidal ideation Physical Exam Vital Signs: Temp Pulse Resp BP Pulse Ox 29 H 142/64 H 98 06/24/17 01:01 06/24/17 01:01 06/24/17 01:01 General appearance: PRESENT: mild distress Head exam: PRESENT: other - Head laceration Cardiovascular exam: PRESENT: irregular rhythm. ABSENT: diastolic murmur, rubs , systolic murmur GI/Abdominal exam: PRESENT: normal bowel sounds, soft. ABSENT: distended, guarding, mass, organolmegaly, rebound, tenderness Results Impressions: Chest X-Ray 06/23/17 00:00 IMPRESSION: Chronic lung changes with no acute pulmonary disease. Borderline cardiomegaly without failure. Head CT 06/23/17 00:00 IMPRESSION: No acute intracranial hemorrhage. EVIDENCE OF ACUTE STROKE: NO. Chest CT 06/23/17 19:25 IMPRESSION: NORMAL CT OF THE CHEST WITHOUT INTRAVENOUS CONTRAST. NORMAL CT OF THE ABDOMEN AND PELVIS WITHOUT INTRAVENOUS CONTRAST. Abdomen/Pelvis CT 06/23/17 19:26 IMPRESSION: NORMAL CT OF THE CHEST WITHOUT INTRAVENOUS CONTRAST. NORMAL CT OF THE ABDOMEN AND PELVIS WITHOUT INTRAVENOUS CONTRAST. Cervical Spine CT 06/23/17 19:27 IMPRESSION: CHRONIC DEGENERATIVE CHANGES. NO ACUTE FINDINGS. Assessment & Plan - Diagnosis (1) Head injury Qualifiers: Encounter type: initial encounter Qualified Code(s): S09.90XA - Unspecified injury of head, initial encounter Is this a current diagnosis for this admission?: Yes Plan: Observe her overnight, controlled her pain (2) Scalp laceration Qualifiers: Encounter type: initial encounter Qualified Code(s): S01.01XA - Laceration without foreign body of scalp, initial encounter Is this a current diagnosis for this admission?: Yes Plan: Her laceration stitched (3) A-fib Qualifiers: Atrial fibrillation type: chronic Qualified Code(s): I48.2 - Chronic atrial fibrillation Is this a current diagnosis for this admission?: Yes Plan: Rate controlled and continue her Eliquis (4) Diabetes mellitus Qualifiers: Diabetes mellitus type: type 2 Is this a current diagnosis for this admission?: Yes Plan: Continue her home medication and sliding scale. - Time Critical Time spent with patient: 15-24 minutes
[2017-06-24] MEDS: LANSOPRAZOLE 30 MG TAB.RAP.DR PO SCH ×2 (06:46→06:51)
[2017-06-24] MEDS: INSULIN LISPRO 100 UNIT/ML 3 ML VIAL SUBCUT PRN ×3 (09:21→16:57)
[2017-06-24] MEDS: METFORMIN HCL 500 MG TABLET PO SCH ×2 (09:22→16:55)
[2017-06-24] MEDS: TRAMADOL HCL 50 MG TABLET PO SCH ×2 (14:32→23:29)
--- NOTE | 2017-06-24 20:28 | Progress Note ---
Provider Note Provider Note: Admitted earlier this morning by the noctunist s/p fall and sustaining head injury. Complains of headache and pain all over. He had Percocet prescribed, but he does not like taking. We will try her home tramadol. Will continue to monitor for at least 24 hours to ensure stable. Possible home in a.m. if stable.
[2017-06-25 05:56] LABS: ANION GAP 10 (5-19); BLOOD UREA NITROGEN 16 mg/dL (7-20); CALCIUM 8.9 mg/dL (8.4-10.2); CARBON DIOXIDE 30 mmol/L (22-30); CHLORIDE 100 mmol/L (98-107); GLUCOSE 288 mg/dL (75-110); SODIUM 139.9 mmol/L (137-145)
[2017-06-25] MEDS: TRAMADOL HCL 50 MG TABLET PO SCH (06:34)
[2017-06-25] MEDS: METFORMIN HCL 500 MG TABLET PO SCH (07:38)
[2017-06-25] MEDS: INSULIN LISPRO 100 UNIT/ML 3 ML VIAL SUBCUT PRN (07:39)
[2017-06-25 10:36] VITALS: BP 120/48
--- NOTE | 2017-06-25 18:59 | PDOC DISCHARGE SUMMARY ---
General - Admit/Disc Date/PCP Admission Date/Primary Care Provider: 06/24/17 02:04 CHAD ALCALA MD Discharge Date: 06/25/17 - Discharge Diagnosis (1) Scalp laceration Is this a current diagnosis for this admission?: Yes Summary: Secondary to fall. Imaging negative for acute fracture or brain bleed. - Advised patient to exercise caution with activity and avoid falls - Advised her to report any symptoms of lightheadness, dizziness, new weakness/ numbness, headaches, vision changes, or any new symptoms immediately to PCP - Can use OTC meds for pain control (2) Atrial fibrillation with RVR Is this a current diagnosis for this admission?: Yes Summary: Stable, continue current medications (3) Diabetes mellitus Is this a current diagnosis for this admission?: Yes Summary: Stable, continue current medications. - Additional Information Resuscitation Status: Full Code Discharge Diet: As Tolerated Discharge Activity: Activity As Tolerated Home Medications: Apixaban [Eliquis] 5 mg PO Q12 06/24/17 Furosemide [Lasix 40 mg Tablet] 40 mg PO DAILY 06/24/17 Gabapentin [Neurontin 300 mg Capsule] 300 mg PO Q6 06/24/17 Insulin NPH Hum/Reg Insulin Hm [Humulin 70-30 Vial] 6 units SQ ACSUPPER Insulin NPH Hum/Reg Insulin Hm [Humulin 70-30 Vial] 8 unit SQ ACLUNCH 06/24/17 Metformin HCl [Glucophage 500 mg Tablet] 500 mg PO BIDBS 06/24/17 Sotalol HCl [Sotalol] 80 mg PO Q12 06/24/17 Tramadol HCl [Ultram 50 mg Tablet] 50 mg PO Q8 06/24/17 Trazodone HCl [Desyrel 50 mg Tablet] 25 mg PO HSP PRN 06/24/17 History of Present Illness History of Present Illness: BREANA BISWAS is a 76 year old female who presents after she involved in mechanical fall. Patient reports this while she is trying to change bulb in her garage standing on ladder when she lost her balance and landed on hard surface and i injured her head. She noticed to have lacerations on her head which requires stitching. Patient is a known case of A. fib and for which she has been on Eliquis but fortunately her CT scan is negative for intracranial bleeding. Patient denied any dizziness, palpitation, syncope, nausea or vomiting at the time of accident. Currently patient is stable but she has some balance problem so was admitted to hospitalist service. Physical Exam Vital Signs: Temp Pulse Resp BP Pulse Ox 97.6 F 79 16 120/48 L 95 06/25/17 10:34 06/25/17 10:34 06/25/17 10:34 06/25/17 10:34 06/25/17 10:34 Intake & Output 06/24/17 06/25/17 06/26/17 06:59 06:59 06:59 Intake Total 730 Balance 730 Weight 71.8 kg General appearance: PRESENT: no acute distress, well-developed, well-nourished Head exam: PRESENT: other - Headed wrapped up, no active bleeding Mouth exam: PRESENT: moist Respiratory exam: PRESENT: unlabored Cardiovascular exam: PRESENT: irregular rhythm, +S1. ABSENT: systolic murmur, tachycardia GI/Abdominal exam: PRESENT: soft. ABSENT: tenderness Neurological exam: PRESENT: alert, awake, oriented to person, oriented to place , oriented to time, oriented to situation, CN II-XII grossly intact Psychiatric exam: PRESENT: appropriate affect Results Laboratory Results: 06/25/17 04:47 06/25/17 04:47 Sodium 139.9 Potassium 4.0 Chloride 100 Carbon Dioxide 30 Anion Gap 10 BUN 16 Creatinine 0.79 Est GFR ( Amer) > 60 Est GFR (Non-Af Amer) > 60 Glucose 288 H Calcium 8.9 Impressions: Chest X-Ray 06/23/17 00:00 IMPRESSION: Chronic lung changes with no acute pulmonary disease. Borderline cardiomegaly without failure. Head CT 06/23/17 00:00 IMPRESSION: No acute intracranial hemorrhage. EVIDENCE OF ACUTE STROKE: NO. Chest CT 06/23/17 19:25 IMPRESSION: NORMAL CT OF THE CHEST WITHOUT INTRAVENOUS CONTRAST. NORMAL CT OF THE ABDOMEN AND PELVIS WITHOUT INTRAVENOUS CONTRAST. Abdomen/Pelvis CT 06/23/17 19:26 IMPRESSION: NORMAL CT OF THE CHEST WITHOUT INTRAVENOUS CONTRAST. NORMAL CT OF THE ABDOMEN AND PELVIS WITHOUT INTRAVENOUS CONTRAST. Cervical Spine CT 06/23/17 19:27 IMPRESSION: CHRONIC DEGENERATIVE CHANGES. NO ACUTE FINDINGS. Qualifiers - * PATIENT BEING DISCHARGED WITH ANY OF THE FOLLOWING DIAGNOSIS: No
== END 2017-06-25 13:00 | disposition home or self-care (01) ==
LOC: ER 18:11 → EH 06-24 02:04 → 3W 06-24 09:49
PROVIDERS: ADMIT Internal Medicine; ATTEND Internal Medicine
PROC: 0HQ0XZZ Repair Scalp Skin, External Approach (ICD-10-PCS; principal; 2017-06-23)
DX: S01.01XA Laceration without foreign body of scalp, initial encounter (principal); W19.XXXA Unspecified fall, initial encounter; I48.2 Chronic atrial fibrillation; E11.9 Type 2 diabetes mellitus without complications; W11.XXXA Fall on and from ladder, initial encounter; Y93.E9 Activity, other interior property and clothing maintenance; Y92.008 Other place in unspecified non-institutional (private) residence as the place of occurrence of the external cause; R27.8 Other lack of coordination; I50.30 Unspecified diastolic (congestive) heart failure; R09.02 Hypoxemia; R51 Headache; R52 Pain, unspecified; S51.811A Laceration without foreign body of right forearm, initial encounter; S61.411A Laceration without foreign body of right hand, initial encounter; Z79.02 Long term (current) use of antithrombotics/antiplatelets; Z85.6 Personal history of leukemia; Z87.891 Personal history of nicotine dependence; Z79.4 Long term (current) use of insulin; Z79.891 Long term (current) use of opiate analgesic
CPT/HCPCS: 93005; 99285; 36415 ×2; 82553; 82962 ×2; 82550; 85025; 85610; 80048; 80053; 81001; 84484; 83880; 71045; 70450; 71250; 72125; 74176; 93010; 12002; A9270 ×6; J3490 ×2; G0378; J1815

== ENCOUNTER → 2017-07-05 | Outpatient (CLI) | payer MEDICARE ==
--- NOTE | 2017-07-05 17:42 | RADIOLOGY REPORT (SQ) ---
EXAM DESCRIPTION: WRIST RIGHT 3 VIEWS COMPLETED DATE/TIME: 07/05/2017 5:11 pm REASON FOR STUDY: UNSP INJURY OF RIGHT WRIST, HAND AND FINGER(S), INIT ENCNTR S69.91XA UNSP INJURY OF RIGHT WRIST, HAND AND FINGER(S), INI E11.65 TYPE 2 DIABETES MELLITUS WITH HYPERGLYCEMIA Injury 10 days ago with continued pain right hand and wrist COMPARISON: Right hand three views same date NUMBER OF VIEWS: Four views. TECHNIQUE: AP, lateral, oblique, and scaphoid radiographic images acquired of the right wrist. LIMITATIONS: None. FINDINGS: MINERALIZATION: Normal. BONES: No acute fracture or dislocation. No worrisome bone lesions. Normal alignment. SOFT TISSUES: No soft tissue swelling. No foreign body. OTHER: Tiny radiopaque densities are seen along the radial aspect of the scaphoid bone at the scaphot rapezium joint. These could represent tiny loose bodies. Moderate osteoarthritis at the right 1st c arpometacarpal joint with joint space narrowing and bony spurring IMPRESSION: No acute fracture. TECHNICAL DOCUMENTATION: JOB ID: [id number] [employer]- All Rights Reserved Reading location - IP/workstation name: [email or web address]
--- NOTE | 2017-07-05 17:44 | RADIOLOGY REPORT (SQ) ---
EXAM DESCRIPTION: HAND RIGHT 3 VIEWS COMPLETED DATE/TIME: 07/05/2017 5:11 pm REASON FOR STUDY: UNSP INJURY OF RIGHT WRIST, HAND AND FINGER(S), INIT ENCNTR S69.91XA UNSP INJURY OF RIGHT WRIST, HAND AND FINGER(S), INI E11.65 TYPE 2 DIABETES MELLITUS WITH HYPERGLYCEMIA COMPARISON: Right wrist four views same date EXAM PARAMETERS: NUMBER OF VIEWS: Three views. TECHNIQUE: AP, lateral and oblique radiographic images acquired of the right hand. LIMITATIONS: None. FINDINGS: MINERALIZATION: Normal. BONES: No acute fracture or dislocation. No worrisome bone lesions. JOINTS: Osteoarthritis at the 1st carpometacarpal joint, thumb interphalangeal joint, 2nd through 5th finger DIP joints. SOFT TISSUES: No soft tissue swelling. No foreign body. OTHER: No other significant finding. IMPRESSION: No acute fracture or malalignment. Multifocal osteoarthritis TECHNICAL DOCUMENTATION: JOB ID: [id number] [employer]- All Rights Reserved Reading location - IP/workstation name: [email or web address]
== END ==
LOC: OD 16:45
PROVIDERS: ATTEND Family Medicine
DX: S69.91XA Unspecified injury of right wrist, hand and finger(s), initial encounter (principal); X58.XXXA Exposure to other specified factors, initial encounter; Y93.9 Activity, unspecified; Y92.9 Unspecified place or not applicable; E11.65 Type 2 diabetes mellitus with hyperglycemia
CPT/HCPCS: 36415; 83036

== ENCOUNTER 2017-08-12 15:56 | Emergency (ER) | payer MEDICARE ==
[2017-08-12 16:48] LABS: ABSOLUTE BASOPHILS # (AUTO) 0.1 10^3/uL (0.0-0.2); ABSOLUTE EOSINOPHILS # (AUTO) 0.3 10^3/uL (0.0-0.6); ABSOLUTE LYMPHOCYTES (AUTO) 1.1 10^3/uL (0.5-4.7); ABSOLUTE MONOCYTES (AUTO) 0.4 10^3/uL (0.1-1.4); ABSOLUTE NEUT (AUTO) 4.7 10^3/uL (1.7-8.2); BASOPHILS % (AUTO) 1.1 % (0-2); EOSINOPHILS % (AUTO) 4.4 % (0-6); HEMATOCRIT 34.4 % (36.0-47.0); HEMOGLOBIN 11.6 g/dL (12.0-15.5); LYMPHOCYTES % (AUTO) 16.6 % (13-45); MEAN CORPUSCULAR HEMOGLOBIN 26.3 pg (27.0-33.4); MEAN CORPUSCULAR HGB CONC 33.7 g/dL (32.0-36.0); MEAN CORPUSCULAR VOLUME 78 fl (80-97); MONOCYTES % (AUTO) 6.3 % (3-13); PLATELET COUNT 205 10^3/uL (150-450); RED BLOOD COUNT 4.39 10^6/uL (3.72-5.28); RED CELL DISTRIBUTION WIDTH 16.1 % (11.5-14.0); SEGMENTED NEUTROPHILS % (AUTO) 71.6 % (42-78); TOTAL CELLS COUNTED % (AUTO) 100 %; WHITE BLOOD COUNT 6.5 10^3/uL (4.0-10.5)
[2017-08-12 16:53] LABS: APPEARANCE,URINE CLEAR; BILIRUBIN,URINE NEGATIVE (NEGATIVE); COLOR,URINE STRAW; GLUCOSE, URINE 50 mg/dL (NEGATIVE); KETONES,URINE NEGATIVE (NEGATIVE); LEUKOCYTE ESTERASE,URINE NEGATIVE (NEGATIVE); NITRITE,URINE NEGATIVE (NEGATIVE); PROTEIN,URINE NEGATIVE (NEGATIVE); URINE SPECIFIC GRAVITY 1.008; UROBILINOGEN,URINE NEGATIVE mg/dL (<2.0)
[2017-08-12 16:59] LABS: ALANINE AMINOTRANSFERASE 24 U/L (9-52); ALBUMIN 4.2 g/dL (3.5-5.0); ALKALINE PHOSPHATASE 58 U/L (38-126); ANION GAP 13 (5-19); ASPARTATE AMINO TRANSFERASE 22 U/L (14-36); BILIRUBIN,DIRECT 0.4 mg/dL (0.0-0.4); BILIRUBIN,TOTAL 0.7 mg/dL (0.2-1.3); BLOOD UREA NITROGEN 18 mg/dL (7-20); CALCIUM 9.6 mg/dL (8.4-10.2); CARBON DIOXIDE 29 mmol/L (22-30); CHLORIDE 100 mmol/L (98-107); CREATINE KINASE 40 U/L (30-135); GLUCOSE 230 mg/dL (75-110); POTASSIUM 4.4 mmol/L (3.6-5.0); SODIUM 141.8 mmol/L (137-145); TOTAL PROTEIN 6.7 g/dL (6.3-8.2)
[2017-08-12 17:15] LABS: CREATINE KINASE MB 1.11 ng/mL (<4.55)
[2017-08-12 17:16] LABS: TROPONIN I < 0.012 ng/mL
--- NOTE | 2017-08-12 17:28 | ER Document Report ---
ED Medical Screen (RME) - General Chief Complaint: Headache Stated Complaint: LIGHTHEADED Time Seen by Provider: 08/12/17 17:20 Mode of Arrival: Ambulatory Information source: Patient Notes: pt presents with report she fell hit her head on july 31 on the bedside table, no change in loc. she reports symptoms of feeling dizzy, lightheaded, worsening. no c/o n/v. reports dr mims told her to come here for a CT. pt insists she is going home today. TRAVEL OUTSIDE OF THE [place] IN LAST 30 DAYS: No - Related Data Allergies/Adverse Reactions: aspirin [Aspirin] Allergy (Intermediate, Verified 06/24/17 08:14) Hives ciprofloxacin [Ciprofloxacin] Allergy (Intermediate, Verified 06/24/17 08:14) itching Past Medical History - Past Medical History Cardiac Medical History: Reports: Hx Congestive Heart Failure - Diastolic dysfunction Denies: Hx Heart Attack, Hx Hypertension Pulmonary Medical History: Reports: Hx COPD Denies: Hx Asthma Neurological Medical History: Denies: Hx Cerebrovascular Accident, Hx Seizures Endocrine Medical History: Reports: Hx Diabetes Mellitus Type 2 Renal/ Medical History: Denies: Hx Peritoneal Dialysis Malignancy Medical History: Reports: Hx Leukemia GI Medical History: Denies: Hx Hepatitis, Hx Hiatal Hernia, Hx Ulcer Psychiatric Medical History: Denies: Hx Depression Infectious Medical History: Denies: Hx Hepatitis Past Surgical History: Reports: Hx Orthopedic Surgery, Hx Tonsillectomy. Denies : Hx Hysterectomy, Hx Mastectomy, Hx Open Heart Surgery, Hx Pacemaker - Immunizations History of Influenza Vaccine for 11/2016 - 04/2017 Season: No Physical Exam - Vital signs Vitals: Temp Pulse Resp BP Pulse Ox 98.1 F 65 18 155/62 H 96 08/12/17 16:13 08/12/17 16:13 08/12/17 16:13 08/12/17 16:13 08/12/17 16:13 Course - Vital Signs Vital signs: Temp Pulse Resp BP Pulse Ox 98.1 F 65 18 155/62 H 96 08/12/17 16:13 08/12/17 16:13 08/12/17 16:13 08/12/17 16:13 08/12/17 16:13 - Laboratory Result Diagrams: 08/12/17 16:32 08/12/17 16:32 Laboratory results interpreted by me: 08/12/17 08/12/17 08/12/17 16:32 16:32 16:32 Hgb 11.6 L Hct 34.4 L MCV 78 L MCH 26.3 L RDW 16.1 H Glucose 230 H Urine Glucose (UA) 50 H Doctor's Discharge - Discharge Referrals: CHAD MIMS MD [Primary Care Provider] - Follow up as needed
--- NOTE | 2017-08-12 18:12 | RADIOLOGY REPORT (SQ) ---
EXAM DESCRIPTION: CT HEAD WITHOUT COMPLETED DATE/TIME: 08/12/2017 5:55 pm REASON FOR STUDY: fall, hit head COMPARISON: 06/23/2017 TECHNIQUE: Axial images acquired through the brain without intravenous contrast. Images reviewed wi th bone, brain and subdural windows. Additional sagittal and coronal reconstructions were generated. Images stored on PACS. All CT scanners at this facility use dose modulation, iterative reconstruction, and/or weight based d osing when appropriate to reduce radiation dose to as low as reasonably achievable (ALARA). [facility]: Dose Right [facility]: CareDose [facility]: Dose Right [facility]: Teradose 4D [facility]: Smart Zingfin RADIATION DOSE: CT Rad equipment meets quality standard of care and radiation dose reduction techniq ues were employed. CTDIvol: 48.5 mGy. DLP: 854 mGy-cm. mGy. LIMITATIONS: None. FINDINGS: VENTRICLES: Prominent. CEREBRUM: No masses. No hemorrhage. No midline shift. Areas of low density in the white matter mos t likely due to chronic micro-vascular ischemic change. No evidence for acute infarction. CEREBELLUM: No masses. No hemorrhage. No alteration of density. No evidence for acute infarction. EXTRAAXIAL SPACES: Mild age-related involutional change. No fluid collections. No masses. ORBITS AND GLOBE: No intra- or extraconal masses. Normal contour of globe without masses. CALVARIUM: No fracture. PARANASAL SINUSES: No fluid or mucosal thickening. SOFT TISSUES: No mass or hematoma. OTHER: No other significant finding. IMPRESSION: MILD CHRONIC CHANGES OF ATROPHY AND MICROVASCULAR ISCHEMIA. NO ACUTE PROCESS. EVIDENCE OF ACUTE STROKE: NO. TECHNICAL DOCUMENTATION: JOB ID: [id number] Quality ID # [id number]: Final reports with documentation of one or more dose reduction techniques (e.g., Au tomated exposure control, adjustment of the mA and/or kV according to patient size, use of iterative reconstruction technique) 2010 [employer]- All Rights Reserved Reading location - IP/workstation name: [email or web address]
--- NOTE | 2017-08-12 18:21 | ER Document Report ---
ED Syncope and Near Syncope - General Chief Complaint: Headache Stated Complaint: LIGHTHEADED Time Seen by Provider: 08/12/17 17:20 Mode of Arrival: Ambulatory Information source: Patient TRAVEL OUTSIDE OF THE [place] IN LAST 30 DAYS: No - HPI Patient complains to provider of: Other - LIGHT-HEADED, DYSEQUILIBRIUM Symptoms prior to episode: Lightheaded. No: Palpitations, Racing heart, Short of breath Position/Activity at time of episode: Standing Details of activity: Symptoms usually occur shortly after standing up, resolve in 30 seconds or Quality of pain: No pain Context: denies: Lost consciousness Injury location: Head Current symptoms: None/feels back to normal Similar symptoms previously: Yes - Intermittent, becoming more frequent Recently seen / treated by doctor: No - Related Data Allergies/Adverse Reactions: aspirin [Aspirin] Allergy (Intermediate, Verified 06/24/17 08:14) Hives ciprofloxacin [Ciprofloxacin] Allergy (Intermediate, Verified 06/24/17 08:14) itching Past Medical History - General Information source: Patient - Social History Smoking Status: Never Smoker Chew tobacco use (# tins/day): No Frequency of alcohol use: None Drug Abuse: None Lives with: Alone Family History: None Patient has suicidal ideation: No Patient has homicidal ideation: No - Past Medical History Cardiac Medical History: Reports: Hx Atrial Fibrillation - INTERMITTENT, Hx Congestive Heart Failure - Diastolic dysfunction Denies: Hx Heart Attack, Hx Hypertension Pulmonary Medical History: Reports: Hx COPD Denies: Hx Asthma Neurological Medical History: Denies: Hx Cerebrovascular Accident, Hx Seizures Endocrine Medical History: Reports: Hx Diabetes Mellitus Type 2 Renal/ Medical History: Reports: None. Denies: Hx Peritoneal Dialysis Malignancy Medical History: Reports: Hx Leukemia GI Medical History: Reports: None. Denies: Hx Hepatitis, Hx Hiatal Hernia, Hx Ulcer Musculoskeltal Medical History: Reports None Psychiatric Medical History: Reports: None Denies: Hx Depression Infectious Medical History: Denies: Hx Hepatitis Past Surgical History: Reports: Hx Orthopedic Surgery, Hx Tonsillectomy. Denies : Hx Hysterectomy, Hx Mastectomy, Hx Open Heart Surgery, Hx Pacemaker Review of Systems - Review of Systems Constitutional: No symptoms reported EENT: No symptoms reported Cardiovascular: See HPI Respiratory: No symptoms reported Gastrointestinal: No symptoms reported Genitourinary: No symptoms reported Female Genitourinary: Post menopausal Musculoskeletal: No symptoms reported Skin: No symptoms reported Neurological/Psychological: See HPI Physical Exam - Vital signs Vitals: Temp Pulse Resp BP Pulse Ox 98.1 F 65 18 155/62 H 96 08/12/17 16:13 08/12/17 16:13 08/12/17 16:13 08/12/17 16:13 08/12/17 16:13 Interpretation: Hypertensive. No: Tachycardic, Tachypneic, Febrile - General General appearance: Appears well, Alert In distress: None - HEENT Head: Ecchymosis - L. TEMPORAL ORBITAL RIM Eyes: Normal Conjunctiva: Normal Ears: Normal Nasal: Normal Mouth/Lips: Normal Mucous membranes: Normal Neck: Normal - Respiratory Respiratory status: No respiratory distress Breath sounds: Normal - Cardiovascular Rhythm: Regular Heart sounds: Normal auscultation Murmur: No - Abdominal Inspection: Normal Distension: No distension Bowel sounds: Normal - Back Back: Normal - Extremities General upper extremity: Normal inspection General lower extremity: Normal inspection - Neurological Neuro grossly intact: Yes Cognition: Normal Orientation: AAOx4 - Psychological Associated symptoms: Normal affect, Normal mood - Skin Skin Temperature: Warm Skin Moisture: Dry Skin Color: Normal Skin Turgor: Elastic Course - Re-evaluation Re-evalutation: 08/12/17 18:55 Patient remains asymptomatic. Results of laboratory testing and imaging studies discussed with patient in detail. She is advised to be attentive to hydration and to follow-up with her network diagnostic support specialist to discuss alternatives for rate control of her atrial fibrillation. - Vital Signs Vital signs: Temp Pulse Resp BP Pulse Ox 98.1 F 58 L 18 148/59 H 96 08/12/17 16:13 08/12/17 18:41 08/12/17 16:13 08/12/17 18:41 08/12/17 16:13 - Laboratory Result Diagrams: 08/12/17 16:32 08/12/17 16:32 Laboratory results interpreted by me: 08/12/17 08/12/17 08/12/17 16:32 16:32 16:32 Hgb 11.6 L Hct 34.4 L MCV 78 L MCH 26.3 L RDW 16.1 H Glucose 230 H Urine Glucose (UA) 50 H - Diagnostic Test Radiology reviewed: Reports reviewed - EKG Interpretation by Sc EKG shows normal: Sinus rhythm, [place], Intervals, QRS Complexes, ST-T Waves Rate: Normal Rhythm: NSR Discharge - Discharge Clinical Impression: Light-headedness Atrial fibrillation Qualifiers: Atrial fibrillation type: paroxysmal Qualified Code(s): I48.0 - Paroxysmal atrial fibrillation Diabetes type 2, controlled Qualifiers: Diabetes mellitus mule tender insulin use: without mule tender use Diabetes mellitus complication status: without complication Qualified Code(s): E11.9 - Type 2 diabetes mellitus without complications Condition: Stable Disposition: HOME, SELF-CARE Instructions: Dizziness ([facility]) Additional Instructions: CONTINUE PRESENT MEDICATIONS. DRINK PLENTY OF FLUIDS. YOU SHOULD DRINK AT LEAST 64 OUNCES OF WATER DURING 24 HOURS. FOLLOW UP WITH YOUR PRIMARY CARE PROVIDER AND WITH YOUR SURVEYOR GEODETIC. RETURN TO E.R. IF ANY WORSENING OR ANY NEW SYMPTOMS. Referrals: CHAD ALCALA MD [Primary Care Provider] - Follow up as needed
[2017-08-12 19:06] VITALS: BP 144/49
--- NOTE | 2017-08-12 22:56 | EKG REPORT ---
SEVERITY:- BORDERLINE ECG - SINUS RHYTHM BORDERLINE T ABNORMALITIES, INFERIOR LEADS : Confirmed by: Faustina Mehta 12-Aug-2017 22:55:45
== END 2017-08-12 19:00 | disposition home or self-care (01) ==
LOC: ER 15:56
DX: R42 Dizziness and giddiness (principal); I48.0 Paroxysmal atrial fibrillation; E11.9 Type 2 diabetes mellitus without complications; S05.12XA Contusion of eyeball and orbital tissues, left eye, initial encounter; W22.09XA Striking against other stationary object, initial encounter; R03.0 Elevated blood-pressure reading, without diagnosis of hypertension; Z78.0 Asymptomatic menopausal state
CPT/HCPCS: 36415; 70450; 80053; 81001; 82550; 82553; 84484; 85025; 93005; 93010; 99285

== ENCOUNTER → 2017-09-13 | Outpatient (CLI) | payer MEDICARE ==
[2017-09-13 13:54] LABS: ANION GAP 13 (5-19); BLOOD UREA NITROGEN 20 mg/dL (7-20); CALCIUM 9.5 mg/dL (8.4-10.2); CARBON DIOXIDE 34 mmol/L (22-30); CHLORIDE 93 mmol/L (98-107); GLUCOSE 176 mg/dL (75-110)
== END ==
LOC: OD 13:01
PROVIDERS: ATTEND Family Medicine
DX: E87.70 Fluid overload, unspecified (principal)
CPT/HCPCS: 36415; 80048; 82040

== ENCOUNTER → 2017-11-26 | Outpatient (CLI) | payer MEDICARE ==
[2017-11-26 14:37] LABS: ABSOLUTE BASOPHILS # (AUTO) 0.1 10^3/uL (0.0-0.2); ABSOLUTE EOSINOPHILS # (AUTO) 0.3 10^3/uL (0.0-0.6); ABSOLUTE LYMPHOCYTES (AUTO) 1.2 10^3/uL (0.5-4.7); ABSOLUTE MONOCYTES (AUTO) 0.4 10^3/uL (0.1-1.4); ABSOLUTE NEUT (AUTO) 4.7 10^3/uL (1.7-8.2); BASOPHILS % (AUTO) 0.9 % (0-2); HEMATOCRIT 34.9 % (36.0-47.0); HEMOGLOBIN 12.3 g/dL (12.0-15.5); LYMPHOCYTES % (AUTO) 17.8 % (13-45); MEAN CORPUSCULAR HEMOGLOBIN 27.6 pg (27.0-33.4); MEAN CORPUSCULAR HGB CONC 35.1 g/dL (32.0-36.0); MEAN CORPUSCULAR VOLUME 79 fl (80-97); MONOCYTES % (AUTO) 5.6 % (3-13); PLATELET COUNT 202 10^3/uL (150-450); RED BLOOD COUNT 4.44 10^6/uL (3.72-5.28); RED CELL DISTRIBUTION WIDTH 16.2 % (11.5-14.0); SEGMENTED NEUTROPHILS % (AUTO) 70.7 % (42-78); TOTAL CELLS COUNTED % (AUTO) 100 %; WHITE BLOOD COUNT 6.6 10^3/uL (4.0-10.5)
[2017-11-26 15:24] LABS: ALANINE AMINOTRANSFERASE 24 U/L (9-52); ALKALINE PHOSPHATASE 55 U/L (38-126); ANION GAP 12 (5-19); ASPARTATE AMINO TRANSFERASE 21 U/L (14-36); BILIRUBIN,DIRECT 0.5 mg/dL (0.0-0.4); BILIRUBIN,TOTAL 0.7 mg/dL (0.2-1.3); BLOOD UREA NITROGEN 19 mg/dL (7-20); CALCIUM 9.1 mg/dL (8.4-10.2); CARBON DIOXIDE 27 mmol/L (22-30); CHLORIDE 98 mmol/L (98-107); CHOLESTEROL 172.52 mg/dL (0-200); GLUCOSE 329 mg/dL (75-110); POTASSIUM 4.3 mmol/L (3.6-5.0); SODIUM 137.2 mmol/L (137-145); TOTAL PROTEIN 6.6 g/dL (6.3-8.2)
== END ==
LOC: OD 13:14
PROVIDERS: ATTEND Family Medicine
DX: E11.65 Type 2 diabetes mellitus with hyperglycemia (principal); Z79.899 Other long term (current) drug therapy
CPT/HCPCS: 36415; 80053; 82043; 82465; 82570; 83036; 83718; 85025

== ENCOUNTER → 2018-03-04 | Outpatient (CLI) | payer MEDICARE ==
[2018-03-04 16:40] LABS: ANION GAP 10 (5-19); BLOOD UREA NITROGEN 21 mg/dL (7-20); CALCIUM 9.6 mg/dL (8.4-10.2); CARBON DIOXIDE 34 mmol/L (22-30); CHLORIDE 95 mmol/L (98-107); GLUCOSE 205 mg/dL (75-110); POTASSIUM 5.1 mmol/L (3.6-5.0); SODIUM 138.7 mmol/L (137-145)
== END ==
LOC: OD 15:01
PROVIDERS: ATTEND Family Medicine
DX: E11.65 Type 2 diabetes mellitus with hyperglycemia (principal)
CPT/HCPCS: 36415; 80048; 83036

== ENCOUNTER → 2018-04-28 | Outpatient (CLI) | payer MEDICARE ==
--- NOTE | 2018-04-28 15:39 | RADIOLOGY REPORT (SQ) ---
EXAM DESCRIPTION: CT ABDOMEN COMBO COMPLETED DATE/TIME: 04/28/2018 3:19 pm REASON FOR STUDY: UPPER ABDOMINAL PAIN, UNSPECIFIED R10.10 UPPER ABDOMINAL PAIN, UNSPECIFIED COMPARISON: 06/23/2017 TECHNIQUE: CT scan of the abdomen performed with and without intravenous contrast, and without oral contrast. Contrasted imaging performed using helical scanning technique with dynamic intravenous cont rast injection. Images reviewed with lung, soft tissue, and bone windows. Reconstructed coronal and s agittal MPR images reviewed. Delayed images for evaluation of the urinary system also acquired and ev aluated. All images stored on PACS. All CT scanners at this facility use dose modulation, iterative reconstruction, and/or weight based d osing when appropriate to reduce radiation dose to as low as reasonably achievable (ALARA). [facility]: Dose Right [facility]: CareDose [facility]: Dose Right [facility]: Teradose 4D [facility]: [employer] CONTRAST TYPE AND DOSE: contrast/concentration: Isovue 350.00 mg/ml; Total Contrast Delivered: 51.0 ml; Total Saline Delivered: 80.0 ml RENAL FUNCTION: Creatinine 0.9 RADIATION DOSE: CT Rad equipment meets quality standard of care and radiation dose reduction techniq ues were employed. CTDIvol: 9.4 - 22.5 mGy. DLP: 1240 mGy-cm.. LIMITATIONS: None. FINDINGS: NONCONTRASTED IMAGING: There are small gallstones. No renal or ureteral stones. POSTCONTRASTED IMAGING: LOWER CHEST: No significant findings. No nodules or infiltrates. LIVER: Normal size. No masses. No dilated ducts. SPLEEN: Normal size. No focal lesions. PANCREAS: No masses. No significant calcifications. No adjacent inflammation or peripancreatic fluid collections. Pancreatic duct not dilated. GALLBLADDER: Gallstones. No surrounding inflammation. ADRENAL GLANDS: No significant masses or asymmetry. RIGHT KIDNEY AND URETER: No solid masses. No significant calcifications. No hydronephrosis or hyd roureter. There is an extrarenal pelvis. LEFT KIDNEY AND URETER: No solid masses. No significant calcifications. No hydronephrosis or hydr oureter. AORTA AND VESSELS: No aneurysm. No dissection. Renal arteries, SMA, celiac without stenosis. RETROPERITONEUM: No retroperitoneal adenopathy, hemorrhage or masses. BOWEL AND PERITONEAL CAVITY: No masses or inflammatory changes. No free fluid or peritoneal masses. APPENDIX: Not visualized. ABDOMINAL WALL: No masses. No hernias. BONES: No significant or acute findings. OTHER: No other significant finding. IMPRESSION: NO SIGNIFICANT OR ACUTE ABNORMALITY IN THE ABDOMEN. TECHNICAL DOCUMENTATION: JOB ID: [id number] Quality ID # [id number]: Final reports with documentation of one or more dose reduction techniques (e.g., Au tomated exposure control, adjustment of the mA and/or kV according to patient size, use of iterative reconstruction technique) 2010 [employer]- All Rights Reserved Reading location - IP/workstation name: [email or web address]
== END ==
LOC: RAD 14:35
PROVIDERS: ATTEND Family Medicine
DX: K80.80 Other cholelithiasis without obstruction (principal); R10.10 Upper abdominal pain, unspecified
CPT/HCPCS: 74170; 82565

== ENCOUNTER → 2018-06-06 | Outpatient (CLI) | payer MEDICARE ==
[2018-06-06 15:41] LABS: ABSOLUTE BASOPHILS # (AUTO) 0.1 10^3/uL (0.0-0.2); ABSOLUTE EOSINOPHILS # (AUTO) 0.3 10^3/uL (0.0-0.6); ABSOLUTE LYMPHOCYTES (AUTO) 1.4 10^3/uL (0.5-4.7); ABSOLUTE MONOCYTES (AUTO) 0.6 10^3/uL (0.1-1.4); ABSOLUTE NEUT (AUTO) 5.9 10^3/uL (1.7-8.2); BASOPHILS % (AUTO) 0.6 % (0-2); EOSINOPHILS % (AUTO) 3.8 % (0-6); HEMATOCRIT 37.2 % (36.0-47.0); HEMOGLOBIN 12.7 g/dL (12.0-15.5); LYMPHOCYTES % (AUTO) 17.1 % (13-45); MEAN CORPUSCULAR HGB CONC 34.3 g/dL (32.0-36.0); MEAN CORPUSCULAR VOLUME 79 fl (80-97); MONOCYTES % (AUTO) 7.4 % (3-13); PLATELET COUNT 240 10^3/uL (150-450); RED BLOOD COUNT 4.72 10^6/uL (3.72-5.28); RED CELL DISTRIBUTION WIDTH 17.1 % (11.5-14.0); SEGMENTED NEUTROPHILS % (AUTO) 71.1 % (42-78); TOTAL CELLS COUNTED % (AUTO) 100 %; WHITE BLOOD COUNT 8.4 10^3/uL (4.0-10.5)
[2018-06-06 16:06] LABS: ALANINE AMINOTRANSFERASE 25 U/L (9-52); ALBUMIN 4.3 g/dL (3.5-5.0); ALKALINE PHOSPHATASE 47 U/L (38-126); ANION GAP 7 (5-19); ASPARTATE AMINO TRANSFERASE 15 U/L (14-36); BILIRUBIN,DIRECT 0.3 mg/dL (0.0-0.4); BILIRUBIN,TOTAL 0.6 mg/dL (0.2-1.3); BLOOD UREA NITROGEN 19 mg/dL (7-20); CALCIUM 10.4 mg/dL (8.4-10.2); CARBON DIOXIDE 33 mmol/L (22-30); CHLORIDE 101 mmol/L (98-107); CHOLESTEROL 203.72 mg/dL (0-200); GLUCOSE 171 mg/dL (75-110); IRON(TIBC) 84.8 ug/dL (37-170); POTASSIUM 4.2 mmol/L (3.6-5.0); SODIUM 140.5 mmol/L (137-145); TOTAL PROTEIN 7.2 g/dL (6.3-8.2)
[2018-06-08 11:38] LABS: CREATININE URINE 17.6 mg/dL (Not Estab.); MICROALBUMIN URINE 4.7 ug/mL (Not Estab.)
== END ==
LOC: OD 14:39
PROVIDERS: ATTEND Family Medicine
DX: E78.5 Hyperlipidemia, unspecified (principal); D50.9 Iron deficiency anemia, unspecified; D51.9 Vitamin B12 deficiency anemia, unspecified; E11.65 Type 2 diabetes mellitus with hyperglycemia; Z79.01 Long term (current) use of anticoagulants
CPT/HCPCS: 36415; 80053; 82043; 82465; 82570; 82607; 83036; 83540; 83550; 83718; 85025

== ENCOUNTER → 2018-09-09 | Outpatient (CLI) | payer MEDICARE ==
[2018-09-09 17:07] LABS: ANION GAP 11 (5-19); BLOOD UREA NITROGEN 18 mg/dL (7-20); CALCIUM 9.3 mg/dL (8.4-10.2); CARBON DIOXIDE 29 mmol/L (22-30); CHLORIDE 98 mmol/L (98-107); GLUCOSE 268 mg/dL (75-110); POTASSIUM 4.4 mmol/L (3.6-5.0); SODIUM 137.7 mmol/L (137-145)
== END ==
LOC: OD 15:22
PROVIDERS: ATTEND Family Medicine
DX: E11.65 Type 2 diabetes mellitus with hyperglycemia (principal)
CPT/HCPCS: 36415; 80048; 83036

== ENCOUNTER → 2018-09-12 | Outpatient (CLI) | payer MEDICARE ==
--- NOTE | 2018-09-12 18:17 | RADIOLOGY REPORT (SQ) ---
EXAM DESCRIPTION: CHEST PA/LATERAL COMPLETED DATE/TIME: 09/12/2018 5:12 pm REASON FOR STUDY: ACUTE ON CHRONIC SYSTOLIC (CONGESTIVE) HEART FAILURE COMPARISON: 11/20/2016 EXAM PARAMETERS: NUMBER OF VIEWS: two views TECHNIQUE: Digital Frontal and Lateral radiographic views of the chest acquired. RADIATION DOSE: NA LIMITATIONS: none FINDINGS: LUNGS AND PLEURA: No opacities, masses or pneumothorax. No pleural effusion. MEDIASTINUM AND HILAR STRUCTURES: No masses or contour abnormalities. HEART AND VASCULAR STRUCTURES: Heart size is borderline. No pulmonary edema. BONES: No acute findings. HARDWARE: None in the chest. OTHER: No other significant finding. IMPRESSION: Borderline cardiomegaly without alvino pulmonary edema. TECHNICAL DOCUMENTATION: JOB ID: [id number] [employer]- All Rights Reserved Reading location - IP/workstation name: [email or web address]
== END ==
LOC: OD 16:59
PROVIDERS: ATTEND Family Medicine
DX: I50.23 Acute on chronic systolic (congestive) heart failure (principal)
CPT/HCPCS: 71046

== ENCOUNTER → 2019-01-03 | Outpatient (CLI) | payer MEDICARE ==
[2019-01-03 16:46] LABS: ABSOLUTE EOSINOPHILS # (AUTO) 0.3 10^3/uL (0.0-0.6); ABSOLUTE LYMPHOCYTES (AUTO) 1.1 10^3/uL (0.5-4.7); ABSOLUTE MONOCYTES (AUTO) 0.5 10^3/uL (0.1-1.4); ABSOLUTE NEUT (AUTO) 5.9 10^3/uL (1.7-8.2); BASOPHILS % (AUTO) 0.5 % (0-2); EOSINOPHILS % (AUTO) 3.8 % (0-6); HEMATOCRIT 35.1 % (36.0-47.0); HEMOGLOBIN 12.1 g/dL (12.0-15.5); LYMPHOCYTES % (AUTO) 14.7 % (13-45); MEAN CORPUSCULAR HEMOGLOBIN 27.1 pg (27.0-33.4); MEAN CORPUSCULAR HGB CONC 34.4 g/dL (32.0-36.0); MEAN CORPUSCULAR VOLUME 79 fl (80-97); MONOCYTES % (AUTO) 5.8 % (3-13); PLATELET COUNT 225 10^3/uL (150-450); RED BLOOD COUNT 4.45 10^6/uL (3.72-5.28); RED CELL DISTRIBUTION WIDTH 15.4 % (11.5-14.0); SEGMENTED NEUTROPHILS % (AUTO) 75.2 % (42-78); TOTAL CELLS COUNTED % (AUTO) 100 %; WHITE BLOOD COUNT 7.8 10^3/uL (4.0-10.5)
[2019-01-03 17:10] LABS: ALBUMIN 4.1 g/dL (3.5-5.0); ALKALINE PHOSPHATASE 51 U/L (38-126); ANION GAP 9 (5-19); ASPARTATE AMINO TRANSFERASE 20 U/L (14-36); BILIRUBIN,DIRECT 0.1 mg/dL (0.0-0.4); BILIRUBIN,TOTAL 0.9 mg/dL (0.2-1.3); BLOOD UREA NITROGEN 18 mg/dL (7-20); CALCIUM 9.4 mg/dL (8.4-10.2); CARBON DIOXIDE 33 mmol/L (22-30); CHLORIDE 95 mmol/L (98-107); CHOLESTEROL 175.01 mg/dL (0-200); GLUCOSE 288 mg/dL (75-110); IRON(TIBC) 75.3 ug/dL (37-170); POTASSIUM 4.2 mmol/L (3.6-5.0); TOTAL PROTEIN 7.1 g/dL (6.3-8.2)
[2019-01-05 12:36] LABS: CREATININE URINE 36.1 mg/dL (Not Estab.); MICROALBUMIN URINE 11.5 ug/mL (Not Estab.)
== END ==
LOC: OD 15:56
PROVIDERS: ATTEND Family Medicine
DX: E78.5 Hyperlipidemia, unspecified (principal); D50.9 Iron deficiency anemia, unspecified; E11.65 Type 2 diabetes mellitus with hyperglycemia; D51.9 Vitamin B12 deficiency anemia, unspecified
CPT/HCPCS: 36415; 80053; 82043; 82465; 82570; 82607; 82728; 83036; 83540; 83550; 83718; 85025

== ENCOUNTER → 2019-08-14 | Outpatient (CLI) | payer MEDICARE ==
[2019-08-14 16:14] LABS: ABSOLUTE EOSINOPHILS # (AUTO) 0.3 10^3/uL (0.0-0.6); ABSOLUTE LYMPHOCYTES (AUTO) 1.1 10^3/uL (0.5-4.7); ABSOLUTE MONOCYTES (AUTO) 0.4 10^3/uL (0.1-1.4); ABSOLUTE NEUT (AUTO) 5.5 10^3/uL (1.7-8.2); BASOPHILS % (AUTO) 0.3 % (0-2); HEMATOCRIT 34.8 % (36.0-47.0); HEMOGLOBIN 11.6 g/dL (12.0-15.5); LYMPHOCYTES % (AUTO) 15.4 % (13-45); MEAN CORPUSCULAR HEMOGLOBIN 27.5 pg (27.0-33.4); MEAN CORPUSCULAR HGB CONC 33.2 g/dL (32.0-36.0); MEAN CORPUSCULAR VOLUME 83 fl (80-97); MONOCYTES % (AUTO) 5.3 % (3-13); PLATELET COUNT 216 10^3/uL (150-450); RED BLOOD COUNT 4.21 10^6/uL (3.72-5.28); RED CELL DISTRIBUTION WIDTH 16.4 % (11.5-14.0); TOTAL CELLS COUNTED % (AUTO) 100 %; WHITE BLOOD COUNT 7.3 10^3/uL (4.0-10.5)
[2019-08-14 16:39] LABS: ALKALINE PHOSPHATASE 54 U/L (38-126); ANION GAP 8 (5-19); ASPARTATE AMINO TRANSFERASE 19 U/L (14-36); BILIRUBIN,TOTAL 0.9 mg/dL (0.2-1.3); BLOOD UREA NITROGEN 20 mg/dL (7-20); CALCIUM 9.4 mg/dL (8.4-10.2); CARBON DIOXIDE 30 mmol/L (22-30); CHLORIDE 97 mmol/L (98-107); CHOLESTEROL 169.93 mg/dL (0-200); GLUCOSE 282 mg/dL (75-110); IRON(TIBC) 81.1 ug/dL (37-170); POTASSIUM 4.7 mmol/L (3.6-5.0); TOTAL PROTEIN 6.6 g/dL (6.3-8.2)
== END ==
LOC: OD 14:51
PROVIDERS: ATTEND Family Medicine
DX: E78.5 Hyperlipidemia, unspecified (principal); D50.9 Iron deficiency anemia, unspecified; E11.65 Type 2 diabetes mellitus with hyperglycemia; D51.9 Vitamin B12 deficiency anemia, unspecified
CPT/HCPCS: 36415; 80053; 82043; 82465; 82570; 82607; 82728; 83036; 83540; 83550; 83718; 85025